=== PATIENT | male | born 1965 | race Caucasian/White ===

== ENCOUNTER → 2018-02-24 09:48 | Outpatient (CLI) | payer OTHER, SELFPAY ==
[2018-02-24 10:34] LABS: Add Manual Diff / Slide Review NO; Basophils Percent Auto 0.5 % (0-2); Eosinophils Percent Auto 4.6 % (2-4); Hematocrit 39.2 % (41-53); Hemoglobin 13.7 g/dL (13.5-17.5); Lymphocytes Percent Auto 13.9 % (25-40); Mean Corpuscular HGB Conc 35.1 % (30-36); Mean Corpuscular Volume 88.5 fL (80-100); Monocytes Percent Auto 8.4 % (3-14); Neutrophils Absolute Auto 2700 /uL (3000-5900); Neutrophils Percent Auto 72.6 % (50-75); Platelet Count 122 X10^3/uL (150-400); Red Blood Cell Count 4.42 X10^6/uL (4.5-5.9); Red Cell Distribution Width 14.2 % (11.6-14.8); White Blood Cell Count 3.7 X10^3/uL (4.5-11.0)
[2018-02-24 11:13] LABS: Alanine Aminotransferase 35 IU/L (21-72); Albumin 4.5 g/dL (3.5-5.0); Albumin Globulin Ratio 1.5 (1.0-2.8); Alkaline Phosphatase 72 U/L (38-126); Aspartate Aminotransferase 41 IU/L (17-59); Bilirubin Total 1.1 mg/dL (0.2-1.3); Calcium 9.2 mg/dL (8.4-10.2); Cholesterol 261 mg/dL (140-199); Estimated Glomerular Filt Rate > 60.0 mL/min (>60); Glucose 117 mg/dL (70-100); HDL Cholesterol 64 mg/dL (40-60); HEMOLYSIS < 15 (0-50); LDL Cholesterol Calculated 176 mg/dL (<100); Potassium 4.1 mmol/L (3.4-5.1); Sodium 137 mmol/L (137-145); Total Protein 7.5 g/dL (6.3-8.2); Triglycerides 107 mg/dL (35-150)
[2018-02-24 11:33] LABS: Thyroid Stimulating Hormone 1.14 uIU/mL (0.47-4.68)
[2018-02-24 11:37] LABS: Prostate Specific Antigen Scrn 0.429 ng/mL (0.1-4.0)
== END ==
PROVIDERS: PCP Family Medicine; Visit Provider Family Medicine
DX: I10 Essential (primary) hypertension (principal)
CPT/HCPCS: 36415; 80053; 80061; 84403; 84443; 85025; G0103

== ENCOUNTER → 2018-05-20 11:11 | Outpatient (CLI) | payer OTHER, MEDICARE, SELFPAY ==
--- NOTE | 2018-05-20 11:13 | DI.RAD.S_ITS ---
PROCEDURE: XR HAND LT MIN 3V INDICATIONS: hand injury TECHNIQUE: 3 views of the hand(s) acquired. COMPARISON: None. FINDINGS: Bones: Nondisplaced fracture head and neck of the second metacarpal. Carpal bones are normally aligned. No suspicious bony lesions. Soft tissues: No suspicious soft tissue calcifications. IMPRESSION: Fracture second metacarpal head and neck. Dictated by: Obi Griffith M.D. on 05/20/2018 at 12:46 Approved by: Obi Griffith M.D. on 05/20/2018 at 12:47
== END ==
PROVIDERS: PCP Family Medicine; Visit Provider Internal Medicine
DX: S62.361A Nondisplaced fracture of neck of second metacarpal bone, left hand, initial encounter for closed fracture (principal)
CPT/HCPCS: 73130

== ENCOUNTER → 2018-08-26 09:30 | Outpatient (CLI) | payer OTHER, SELFPAY | PROVIDERS: PCP Family Medicine; Visit Provider Family Medicine | DX: G54.2 Cervical root disorders, not elsewhere classified (principal) | CPT/HCPCS: 95886; 95911 ==

== ENCOUNTER → 2019-08-19 06:46 | Outpatient (CLI) | payer OTHER, SELFPAY ==
[2019-08-19 08:21] LABS: Add Manual Diff / Slide Review NO; Basophils Absolute Auto 0 /uL (0-100); Basophils Percent Auto 0.6 % (0-2); Eosinophils Absolute Auto 100 /uL (0-450); Eosinophils Percent Auto 1.6 % (2-4); Hemoglobin 17.5 g/dL (13.5-17.5); Lymphocytes Absolute Auto 1100 /uL (1100-4500); Lymphocytes Percent Auto 20.9 % (25-40); Mean Corpuscular HGB Conc 34.3 % (30-36); Mean Corpuscular Volume 90.4 fL (80-100); Monocytes Absolute Auto 400 /uL (0-900); Monocytes Percent Auto 8.2 % (3-14); Neutrophils Absolute Auto 3600 /uL (1500-7000); Neutrophils Percent Auto 68.7 % (50-75); Platelet Count 254 X10^3/uL (150-400); Red Blood Cell Count 5.64 X10^6/uL (4.5-5.9); Red Cell Distribution Width 12.6 % (11.6-14.8); White Blood Cell Count 5.3 X10^3/uL (4.5-11.0)
[2019-08-19 08:43] LABS: Alanine Aminotransferase 73 IU/L (21-72); Albumin Globulin Ratio 1.5 (1.0-2.8); Alkaline Phosphatase 77 U/L (38-126); Aspartate Aminotransferase 85 IU/L (17-59); BUN Creatinine Ratio 7.8 (6-22); Bilirubin Total 1.1 mg/dL (0.2-1.3); Blood Urea Nitrogen 7 mg/dL (9-20); Calcium 9.5 mg/dL (8.4-10.2); Carbon Dioxide 24 mmol/L (22-32); Chloride 102 mmol/L (98-107); Cholesterol 251 mg/dL (140-199); Estimated Glomerular Filt Rate > 60.0 mL/min (>60); Globulin 3.4 g/dL (1.7-4.1); Glucose 117 mg/dL (70-100); HDL Cholesterol 58 mg/dL (40-60); HEMOLYSIS < 15 (0-50); LDL Cholesterol Calculated 159 mg/dL (<100); Potassium 4.1 mmol/L (3.4-5.1); Sodium 140 mmol/L (137-145); Total Protein 8.4 g/dL (6.3-8.2); Triglycerides 170 mg/dL (35-150); Uric Acid 8.3 mg/dL (3.5-8.5)
[2019-08-19 09:04] LABS: Prostate Specific Antigen Scrn 0.794 ng/mL (0.1-4.0)
[2019-08-19 09:06] LABS: Thyroid Stimulating Hormone 1.03 uIU/mL (0.47-4.68)
== END ==
PROVIDERS: PCP Family Medicine; Visit Provider Family Medicine
DX: I10 Essential (primary) hypertension (principal)
CPT/HCPCS: 36415; 80053; 80061; 84403; 84443; 84550; 85025; G0103

== ENCOUNTER → 2019-10-14 11:45 | Outpatient (CLI) | payer OTHER, SELFPAY ==
--- NOTE | 2019-10-14 11:47 | DI.RAD.S_ITS ---
PROCEDURE: XR SHOULDER RT MIN 2V INDICATIONS: Pain TECHNIQUE: Pre-views of the shoulder were acquired. COMPARISON: None. FINDINGS: Bones: No fractures or dislocations. No suspicious bony lesions. Visualized ribs appear intact. Soft tissues: No suspicious soft tissue calcifications. IMPRESSION: Mild a.c. joint osteoarthritis. Dictated by: Jarett Kaur M.D. on 10/14/2019 at 12:13 Approved by: Jarett Kaur M.D. on 10/14/2019 at 12:14
== END ==
PROVIDERS: PCP Family Medicine; Visit Provider Family Medicine
DX: M25.511 Pain in right shoulder (principal); M19.011 Primary osteoarthritis, right shoulder
CPT/HCPCS: 73030

== ENCOUNTER → 2021-02-14 10:41 | Outpatient (CLI) | payer OTHER, MEDICARE, SELFPAY ==
[2021-02-14] MEDS: COVID-19 VACC #1, MRNA(MOD) 100 MCG/0.5 ML VIAL IM (10:48)
== END ==
PROVIDERS: PCP Family Medicine; Visit Provider Internal Medicine
DX: Z23 Encounter for immunization (principal)
CPT/HCPCS: 0011A; 91301

== ENCOUNTER → 2021-02-22 12:39 | Outpatient (CLI) | payer OTHER, MEDICARE, SELFPAY ==
--- NOTE | 2021-02-22 12:41 | DI.RAD.S_ITS ---
PROCEDURE: XR CERVICAL SPINE 2V OR 3V INDICATIONS: chronic neck pain TECHNIQUE: 4 view(s) of the cervical spine were acquired. COMPARISON: None. FINDINGS: Bones: No fractures or dislocations to the T1 level. The lateral masses of C1 appear intact on the odontoid view. No suspicious bony lesions. Anterior fusion plate stabilization from C5 through C7 is achieved by a fusion plate and bilateral anterior screws at each of the 3 levels, and there also is what appears to be intervertebral disc spacers at the 2 intervening levels. Finally, posterior fixation devices are seen extending from C3 through C7 at and to the right of midline. Soft tissues: No prevertebral soft tissue swelling. IMPRESSION: Anterior fusion plating and [id number] posterior fusion across the levels described above, establishing normal alignment without subluxation. Dictated by: Jarett Kaur M.D. on 02/22/2021 at 13:39 Approved by: Jarett Kaur M.D. on 02/22/2021 at 13:42
[2021-02-22 14:56] LABS: Alanine Aminotransferase 292 IU/L (<50); Albumin 4.5 g/dL (3.5-5.0); Albumin Globulin Ratio 1.4 (1.0-2.8); Alkaline Phosphatase 85 U/L (38-126); Aspartate Aminotransferase 214 IU/L (17-59); BUN Creatinine Ratio 8.1 (6-22); Bilirubin Total 0.8 mg/dL (0.2-1.3); Blood Urea Nitrogen 7 mg/dL (9-20); Calcium 9.5 mg/dL (8.4-10.2); Carbon Dioxide 27 mmol/L (22-32); Chloride 96 mmol/L (98-107); Estimated Glomerular Filt Rate > 60.0 mL/min (>60); Globulin 3.2 g/dL (1.7-4.1); Glucose 131 mg/dL (70-100); HEMOLYSIS < 15 (0-50); Potassium 3.9 mmol/L (3.4-5.1); Sodium 134 mmol/L (137-145); Total Protein 7.7 g/dL (6.3-8.2)
[2021-02-22 15:27] LABS: Prostate Specific Antigen Scrn 1.11 ng/mL (0.1-4.0)
[2021-02-22 15:29] LABS: TSH w/ Reflex to FT4 0.87 uIU/mL (0.47-4.68)
== END ==
PROVIDERS: PCP Internal Medicine; Referring Provider Internal Medicine; Visit Provider Internal Medicine
DX: M54.2 Cervicalgia (principal); Z12.5 Encounter for screening for malignant neoplasm of prostate; E29.1 Testicular hypofunction; I10 Essential (primary) hypertension; G89.29 Other chronic pain; Z98.1 Arthrodesis status
CPT/HCPCS: 36415; 72040; 80053; 84443; G0103

== ENCOUNTER → 2021-03-20 10:46 | Outpatient (CLI) | payer MEDICARE, SELFPAY ==
[2021-03-20] MEDS: COVID-19 VACC #2, MRNA(MOD) 100 MCG/0.5 ML VIAL IM (10:52)
== END ==
PROVIDERS: PCP Internal Medicine; Visit Provider Internal Medicine
DX: Z23 Encounter for immunization (principal)
CPT/HCPCS: 0012A; 91301

== ENCOUNTER → 2021-09-27 10:37 | Outpatient (CLI) | payer OTHER, MEDICARE, SELFPAY ==
[2021-09-27 12:22] LABS: INR 1.1 (0.9-1.3); Prothrombin Time 12.5 SECONDS (10.1-12.7)
[2021-09-27 12:28] LABS: HEMOLYSIS < 15 (0-50); Iron 241 ug/dL (49-181)
[2021-09-27 12:29] LABS: Alanine Aminotransferase 125 IU/L (<50); Albumin Globulin Ratio 1.4 (1.0-2.8); Alkaline Phosphatase 76 U/L (38-126); Aspartate Aminotransferase 161 IU/L (17-59); BUN Creatinine Ratio 14.1 (6-22); Bilirubin Total 1.4 mg/dL (0.2-1.3); Blood Urea Nitrogen 13 mg/dL (9-20); Calcium 10.5 mg/dL (8.4-10.2); Carbon Dioxide 31 mmol/L (22-32); Chloride 97 mmol/L (98-107); Cholesterol 281 mg/dL (140-199); Creatine Kinase 160 U/L (55-170); Estimated Glomerular Filt Rate > 60.0 mL/min (>60); Globulin 3.5 g/dL (1.7-4.1); Glucose 128 mg/dL (70-100); HDL Cholesterol 107 mg/dL (40-60); HEMOLYSIS 28 (0-50); LDL Cholesterol Calculated 155 mg/dL (<100); Potassium 4.9 mmol/L (3.4-5.1); Sodium 136 mmol/L (137-145); Total Protein 8.5 g/dL (6.3-8.2); Triglycerides 93 mg/dL (35-150)
[2021-09-27 12:39] LABS: Percent Iron Saturation 66 % (20-50); Total Iron Binding Capacity 364 ug/dL (261-462); Transferrin 295 mg/dL (206-381)
[2021-09-27 13:00] LABS: TSH w/ Reflex to FT4 2.16 uIU/mL (0.47-4.68)
[2021-09-27 13:01] LABS: Hepatitis B Surface Antigen NEGATIVE s/c (NEGATIVE)
[2021-09-27 13:18] LABS: Hep C Virus Ab w/Reflex Quant NEGATIVE s/c (NEGATIVE)
[2021-09-28 04:50] LABS: Ceruloplasmin 24.3 mg/dL (16.0-31.0)
[2021-09-29 18:31] LABS: Smooth Muscle Antibody 9 Units (0-19)
[2021-10-01 01:08] LABS: Hepatitis B Surf Ab Qualitativ Non Reactive (.)
[2021-10-01 02:36] LABS: Deamidated Gliadin IgA 7 units (0-19); Deamidated Gliadin IgG 2 units (0-19); IGA 207 mg/dL (90-386); t-Transglutaminase IgA <2 U/mL (0-3)
[2021-10-01 07:09] LABS: Percent Free Testosterone 2.56 % (1.50-4.20); Testosterone Total 273.5 ng/dL (264.0-916.0)
[2021-10-02 12:09] LABS: ANA Screen, IFA Negative (.)
== END ==
PROVIDERS: PCP Internal Medicine; Referring Provider Internal Medicine; Visit Provider Internal Medicine
DX: R79.89 Other specified abnormal findings of blood chemistry (principal); I10 Essential (primary) hypertension; E29.1 Testicular hypofunction
CPT/HCPCS: 36415; 80048; 80061; 80076; 82390; 82550; 82784; 83516; 83540; 83550; 84402; 84403; 84443; 85610; 86038; 86255; 86706; 86803; 87340

== ENCOUNTER → 2022-05-07 10:23 | Outpatient (CLI) | payer MEDICARE, SELFPAY ==
--- NOTE | 2022-05-07 10:25 | DI.MRI.S_ITS ---
PROCEDURE: MR SHOULDER LT WO CON INDICATIONS: chronic pain TECHNIQUE: Noncontrast oblique coronal T2 fast spin echo with fat saturation, oblique sagittal T1 spin echo and T2 fast spin echo with fat saturation, axial T1 spin echo and T2 fast spin echo with fat saturation through the shoulder. COMPARISON: [facility], CR, XR SHOULDER RT MIN 2V, 10/14/2019, 11:44. FINDINGS: Image quality: Excellent. Rotator cuff: There is full-thickness tearing of the supraspinatus tendon and the anterior portion of the infraspinatus tendon approximately 1 cm from the distal insertion with proximal tendon retraction measuring up to 3.9 cm. Tendinosis of the posterior infraspinatus tendon is seen. The teres minor tendon is intact. There is high-grade partial articular sided tearing of the subscapularis tendon at the superior insertion superimposed on chronic tendinosis. There is a mild atrophy and grade 2 fatty infiltration of the supraspinatus muscle. The infraspinatus and subscapularis tendons are intact. Mildly increased signal is seen in the teres minor muscle that may be related to mild early denervation changes. No mass is seen along the course of the axillary nerve. Bones and bursae: There is no acute trabecular bone injury. Severe degenerative changes are seen in the acromioclavicular joint with subchondral cystic changes and edema and marginal osteophyte formation. A small glenohumeral effusion communicates with the subacromial/subdeltoid bursa. Capsule and soft tissues: There is diffuse labral degeneration and nondisplaced degenerative tearing. The biceps long head tendon is not visualized, consistent with complete tearing and distal retraction. There is effacement of the fat in the rotator interval. The glenohumeral ligaments are grossly intact. IMPRESSION: 1. Full-thickness tearing of the supraspinatus tendon in the anterior portion of the infraspinatus tendon approximately 1 cm from their distal insertions with proximal tendon retraction measuring up to 3.9 cm. Moderate posterior infraspinatus tendinosis. Mild atrophy and grade 2 fatty infiltration of the supraspinatus muscle. 2. High-grade partial articular sided tearing of the subscapularis tendon at the superior insertion superimposed on moderate chronic tendinosis. 3. Complete tearing and distal retraction of the biceps long head tendon. 4. Diffuse labral degeneration and chronic degenerative tearing. 5. Severe acromioclavicular osteoarthrosis. 6. Small glenohumeral effusion communicates with the subacromial/subdeltoid bursa. 7. Mildly increased signal within the teres minor muscle may be related to mild or early denervation changes. No mass is seen along the course of the axillary nerve. Dictated by: Luis Villar M.D. on 05/07/2022 at 13:41 Approved by: Luis Villar M.D. on 05/07/2022 at 13:53
== END ==
PROVIDERS: PCP Family Medicine; Referring Provider Family Medicine; Visit Provider Family Medicine
DX: M25.512 Pain in left shoulder (principal); G89.29 Other chronic pain; M75.122 Complete rotator cuff tear or rupture of left shoulder, not specified as traumatic; S46.111A Strain of muscle, fascia and tendon of long head of biceps, right arm, initial encounter; M19.011 Primary osteoarthritis, right shoulder; M25.411 Effusion, right shoulder
CPT/HCPCS: 73221

== ENCOUNTER → 2022-05-14 17:05 | Outpatient (CLI) | payer MEDICARE, SELFPAY ==
--- NOTE | 2022-05-14 17:09 | DI.MRI.S_ITS ---
PROCEDURE: MR CERVICAL SPINE WO CON INDICATIONS: Neck pain TECHNIQUE: Noncontrast sagittal T1 spin echo and T2 fast spin echo, sagittal STIR, foraminal oblique sagittal T2 fast spin echo, and axial gradient echo or T2 fast spin echo through the cervical spine. COMPARISON: [facility], CR, XR CERVICAL SPINE 2V OR 3V, 02/22/2021, 12:41. [facility], CT, CT CERVICAL SPINE WITHOUT CONTRAST, 05/20/2018, 13:23. FINDINGS: Image quality: Excellent. Alignment and Curvature: Reversal of the normal cervical lordosis is seen, with the apex at the C3-C4 level. No focal AP alignment abnormality is seen. Bone Marrow: Marrow demonstrates normal overall signal. Spinal Cord: Visualized spinal cord has normal size and signal. No cerebellar tonsillar herniation. Paraspinous Soft Tissues: No paravertebral masses. Prevertebral soft tissues are normal in thickness. Extensive postoperative changes are seen, with anterior fixation hardware C5 through C7. There has been removal of portions of the posterior elements, with placement of metallic fixation devices posteriorly. C2-C3: The disc height is well-preserved. Loss of disc signal is seen at this level. Moderate generalized disc bulge is seen. Moderate facet joint hypertrophy is seen. There is moderate to severe left-sided and moderate right-sided neural foraminal narrowing. No central canal narrowing is seen. C3-C4: There is moderate to severe loss of disc height and disc signal can be seen. At least moderate disc bulge is seen. At least moderate facet hypertrophy is seen at this level. Moderate to severe bilateral neural foraminal narrowing is seen. The central canal is widely patent. C4-C5: The disc height is well-preserved. Loss of disc signal is seen at this level. Mild to moderate disc osteophyte complex is seen. There is moderate facet hypertrophy seen, right worse than left. There is moderate to severe right-sided and moderate left-sided neural foraminal narrowing. The central canal is widely patent. C5-C6: Moderate generalized disc osteophyte complex is seen. Moderate facet joint hypertrophy is seen. There is moderate to severe bilateral neural foraminal narrowing seen, with an associated a degree of compression seen upon the exiting nerve roots. No central canal narrowing is seen. C6-C7: A mild degree of generalized disc osteophyte complex is seen. Mild facet joint hypertrophy is seen. At least moderate bilateral neural foraminal narrowing can be seen. The central canal is widely patent. C7-T1: The disc height and disc signal are relatively well preserved. A mild degree of generalized disc osteophyte complex is seen. There is moderate to severe right-sided and moderate left-sided neural foraminal narrowing. No central canal narrowing is seen. IMPRESSION: Extensive postoperative hardware can be seen. Multiple levels of degenerative change can be seen, with multiple levels of significant neural foraminal narrowing. Dictated by: Samir Mckeon M.D. on 05/14/2022 at 16:59 Approved by: Samir Mckeon M.D. on 05/14/2022 at 17:04
== END ==
PROVIDERS: PCP Family Medicine; Referring Provider Family Medicine; Visit Provider Family Medicine
DX: M47.812 Spondylosis without myelopathy or radiculopathy, cervical region (principal); M48.02 Spinal stenosis, cervical region; M54.2 Cervicalgia; G89.29 Other chronic pain; Z98.1 Arthrodesis status
CPT/HCPCS: 72141

== ENCOUNTER → 2023-02-25 07:04 | Outpatient (CLI) | payer OTHER, MEDICARE, SELFPAY ==
--- NOTE | 2023-02-25 07:07 | DI.US.S_ITS ---
PROCEDURE: US SCROTUM INDICATIONS: RIGHT TESTICULAR PAIN TECHNIQUE: Real-time scanning was performed of the scrotum and testicles, with image documentation. Color and pulse Doppler interrogation was performed of both testicles. COMPARISON: None. FINDINGS: Right: Testicle is normal in size at 3.2 x 1.2 x 2.1 cm, and mildly heterogeneous in echotexture. No focal testicular lesions. Epididymis is normal in overall size and morphology. No hydrocele or varicoceles. Overlying scrotal skin is normal in thickness. Left: Testicle is normal in size at 2.9 x 1.3 x 2.0 cm, and mildly heterogeneous in echotexture. No focal testicular lesions. Epididymis is normal in overall size and morphology. No hydrocele or varicoceles. Overlying scrotal skin is normal in thickness. Doppler: Color and pulse Doppler demonstrate symmetric arterial flow in both testicles which is slightly diminished in amplitude. No inguinal hernias identified. IMPRESSION: 1. Testicles without focal intratesticular abnormalities. Symmetric but slightly diminished arterial flow within the bilateral testicles. Normal waveforms. No hyperemia. Overall, relatively symmetric appearance of the bilateral testicles. 2. No sonographic abnormalities identified in the right inguinal region. Dictated by: Parveen Polanco M.D. on 02/25/2023 at 8:17 Approved by: Parveen Polanco M.D. on 02/25/2023 at 8:24
== END ==
PROVIDERS: PCP Family Medicine; Referring Provider Family Medicine; Visit Provider Family Medicine
DX: N50.811 Right testicular pain (principal)
CPT/HCPCS: 76870

== ENCOUNTER → 2023-03-02 10:26 | Outpatient (CLI) | payer OTHER, SELFPAY ==
--- NOTE | 2023-03-02 | DI.MRI.S_ITS ---
PROCEDURE: MR SHOULDER LT W CON INDICATIONS: acute left shoulder pain TECHNIQUE: After the administration of 12 mL of dilute intra-articular Gadolinium contrast, oblique coronal T1 and T2 spin echo with fat saturation, oblique sagittal T1 spin echo with and without fat saturation, oblique sagittal T2 fast spin echo with fat saturation, axial T1 spin echo with fat saturation through the shoulder. COMPARISON: None. FINDINGS: Image quality: Excellent. Rotator cuff: There is prior rotator cuff tendon repair. Full-thickness rupture of distal supraspinatus and infraspinatus at their insertions on humeral head is seen with up to 4.7 cm medial retraction of torn tendon fibers to the level of acromioclavicular joint. Low-grade intrasubstance partial-thickness tear involving distal subscapularis is seen. Moderate supraspinatus and mild infraspinatus muscle atrophy is seen on sagittal images. Bones and bursae: Expected postsurgical widening of acromioclavicular joint is seen. Postsurgical changes are noted in anterior and lateral aspect of humeral head. No acute fracture or dislocation. Superior migration of humeral head in relation to glenoid is noted. Capsule and soft tissues: Signal abnormality and contrast extension in superior anterior labrum at 12 to 2 o'clock position is seen suggestive of superior anterior labral tear. Patient is status post tenodesis of proximal long head of biceps. The visualized portion of proximal biceps tendon is grossly intact. The rotator interval appears normal, without fibrosis. The coracohumeral ligament is of normal thickness. No intra-articular bodies. IMPRESSION: 1. Postsurgical changes from prior rotator cuff tendon repair. No acute fracture or dislocation. Expected postsurgical widening of acromioclavicular joint. No gross loose bodies. 2. Full-thickness rupture of distal supraspinatus and infraspinatus at their insertions on humeral head with up to 4.7 cm medial retraction of torn tendon fibers to the level of acromioclavicular joint. Low-grade intrasubstance partial-thickness tear involving distal subscapularis. Moderate supraspinatus muscle atrophy and mild infraspinatus muscle atrophy. 3. Suggestion of superior anterior labral tear at 12 to 2 o'clock position. 4. Proximal long head of biceps tenodesis with grossly intact biceps tendon. Dictated by: Artie Diggs M.D. on 03/02/2023 at 15:12 Approved by: Artie Diggs M.D. on 03/02/2023 at 15:16
--- NOTE | 2023-03-02 | DI.RAD.S_ITS ---
PROCEDURE: FL SHOULDER INJECTION MR/CT LT INDICATIONS: acute left shoulder pain COMPARISON: None. TECHNIQUE: The indications, alternatives, benefits, risks, and complications of the procedure were explained to the patient. Written informed consent was obtained and placed in the chart. The shoulder was examined fluoroscopically and a site for needle placement chosen for entry into the glenohumeral joint from an anterior approach. The skin was prepped and draped in a sterile fashion, and 1% lidocaine infiltrated from skin down to joint capsule. A spinal needle was inserted into the glenohumeral joint, and a small amount of saline was injected to confirm intra-articular placement of the needle tip. This was followed by approximately 12 mL dilute solution of a gadolinium containing MR contrast agent. The needle was removed and a dressing was applied. The patient was given postprocedural instructions and sent to the MR suite for MR imaging. FINDINGS: A single fluoroscopic spot image demonstrates the left glenohumeral joint, status post gadolinium injection. IMPRESSION: Successful fluoroscopically guided administration of dilute Gadolinium solution into the shoulder joint for MR arthrogram. Dictated by: Willam Rogers M.D. on 03/02/2023 at 13:34 Approved by: Willam Rogers M.D. on 03/02/2023 at 13:35
== END ==
PROVIDERS: PCP Family Medicine; Referring Provider Orthopaedic Surgery; Visit Provider Orthopaedic Surgery
DX: S46.012D Strain of muscle(s) and tendon(s) of the rotator cuff of left shoulder, subsequent encounter (principal); M25.512 Pain in left shoulder; G89.11 Acute pain due to trauma; Z98.890 Other specified postprocedural states
CPT/HCPCS: 23350; 73222

== ENCOUNTER → 2023-04-03 14:33 | Outpatient (CLI) | payer OTHER, SELFPAY | PROVIDERS: PCP Family Medicine; Visit Provider Nurse Practitioner Family | DX: N50.819 Testicular pain, unspecified (principal) | CPT/HCPCS: 87086 ==

== ENCOUNTER → 2023-04-16 10:32 | Outpatient (CLI) | payer OTHER, MEDICARE, SELFPAY ==
--- NOTE | 2023-04-16 10:34 | DI.US.S_ITS ---
PROCEDURE: US ABDOMEN COMPLETE INDICATIONS: ELEVATED LFTs, URINE BILIRUBIN TECHNIQUE: Real-time scanning was performed of the abdominal and retroperitoneal organs, with image documentation. COMPARISON: None. FINDINGS: Challenging exam secondary to patient body habitus and bowel gas. Liver: The liver parenchyma is heterogeneous, coarse, and echogenic. The liver size is at the upper limits of normal. The margin appears smooth. No visible mass. Gallbladder: The gallbladder is elongated and distended. There is sludge without stone present. The wall thickness is questionable, at one point measuring 4.6 mm. There is no pericholecystic fluid or sonographic Mas sign. Incidental note of mild gallbladder wall hyperemia. Biliary ducts: Intrahepatic bile ducts are non-dilated. Extrahepatic bile duct caliber measures 6.9 mm. Normal is 6-7 mm or less in diameter, or 10 mm or less post-cholecystectomy. Pancreas: Not seen. Spleen: Spleen is normal in size and homogeneous in echotexture. Kidneys: Kidneys are normal in size and echotexture. Right kidney measures 10.7 cm long; left kidney measures 10.3 cm long. No hydronephrosis or nephrolithiasis. No solid masses. Aorta: Not seen Iliacs: Not seen IVC: Intrahepatic inferior vena cava is patent. Miscellaneous: No free abdominal fluid. IMPRESSION: 1. Heterogeneous hepatic echotexture suggesting steatosis or intrinsic liver disease. 2. Sludge containing gallbladder with a possibly thickened and hyperemic wall. No obstructing stone. Consider nuclear medicine HIDA scan for confirmation of biliary dysfunction. 3. No biliary dilatation. Dictated by: Kendra Tatum M.D. on 04/16/2023 at 13:49 Approved by: Kendra Tatum M.D. on 04/16/2023 at 13:54
== END ==
PROVIDERS: PCP Family Medicine; Referring Provider Nurse Practitioner Family; Visit Provider Nurse Practitioner Family
DX: R79.89 Other specified abnormal findings of blood chemistry (principal); R82.2 Biliuria; K82.8 Other specified diseases of gallbladder
CPT/HCPCS: 76700

== ENCOUNTER 2023-04-20 15:20 | Emergency (ER) | payer OTHER, MEDICARE, SELFPAY ==
[2023-04-20 15:25] VITALS: BP 135/83; PULSE 117; RESP 20; TEMP 36.6; O2SAT 96
[2023-04-20 15:30] VITALS: BP 134/95; PULSE 117; O2SAT 96
[2023-04-20 15:42] LABS: Add Manual Diff / Slide Review NO; Basophils Absolute Auto 100 /uL (0-100); Basophils Percent Auto 2.6 % (0-2); Eosinophils Absolute Auto 100 /uL (0-450); Eosinophils Percent Auto 2.9 % (2-4); Hematocrit 37.8 % (41-53); Hemoglobin 12.9 g/dL (13.5-17.5); Lymphocytes Absolute Auto 1300 /uL (1100-4500); Lymphocytes Percent Auto 27.3 % (25-40); Mean Corpuscular HGB Conc 34.2 % (30-36); Mean Corpuscular Hemoglobin 33.8 PG (26-34); Mean Corpuscular Volume 98.7 fL (80-100); Monocytes Absolute Auto 400 /uL (0-900); Monocytes Percent Auto 7.7 % (3-14); Neutrophils Absolute Auto 2900 /uL (1500-7000); Neutrophils Percent Auto 59.5 % (50-75); Platelet Count 171 X10^3/uL (150-400); Red Blood Cell Count 3.83 X10^6/uL (4.5-5.9); Red Cell Distribution Width 14.1 % (11.6-14.8); White Blood Cell Count 4.9 X10^3/uL (4.5-11.0)
--- NOTE | 2023-04-20 15:51 | ED_ITS ---
HPI - Nausea/Vomiting/Diarrhea General Chief complaint: Nausea/Vomiting/Diarrhea Stated complaint: puking bile, coughing, galbladder T-30 Time Seen by Provider: 04/20/23 15:33 Source: patient and family Mode of arrival: Ambulatory History of Present Illness HPI Narrative: Patient is a 57-year-old male. Is an alcoholic. Is here for evaluation of approximately 30 days of vomiting, weight loss, scrotal discomfort and potential gallbladder dysfunction. He has been seen by his primary care doctor's office for all of the symptoms in the past. Has had a scrotal ultrasound which was unremarkable. Has a follow-up with Urology in 2 days from now. He is also had an abdominal ultrasound which showed potential gallbladder dysfunction. The ultrasound report recommended a HIDA scan however the patient has not had any further follow-up for this. Patient is also complaining of a lump in his neck. He states that he has difficulty swallowing. No problems breathing. He is still tolerating liquids he is still continuing to drink alcohol. He is also been vomiting. This seems to mostly occur at night in in the morning. Patient does not have any nausea medication. He is no specific abdominal tenderness. Related Data Previous Rx's Medication Instructions Recorded tretinoin 0.05 % topical cream 1 applic topical BEDTIME PRN Cysts 10/09/21 (Retin-A) #45 grams indomethacin 25 mg capsule 25 mg PO TID #90 caps 04/25/22 syringe with needle, safety 3 mL #100 ea 04/25/22 20 gauge x 1 1/2 (Monoject Safety Syringes) cyclobenzaprine 10 mg tablet 10 mg PO TID PRN muscle spasm #90 07/26/22 tabs lisinopril 20 mg tablet 20 mg PO DAILY #90 tabs 11/20/22 diazepam 10 mg tablet See Rx Instructions PO .COMPLEX 02/17/23 alcohol withdrawal #32 tabs hydrocodone 7.5 mg-acetaminophen See Rx Instructions .Route 04/01/23 325 mg tablet .COMPLEX #240 tabs atorvastatin 10 mg tablet 10 mg PO DAILY #90 tabs 04/03/23 testosterone cypionate 200 mg/mL See Rx Instructions .Route 04/03/23 intramuscular oil .COMPLEX #10 mL zolpidem 5 mg tablet See Rx Instructions .Route 04/03/23 .COMPLEX #30 tabs duloxetine 40 mg capsule,delayed See Rx Instructions .Route 04/17/23 release .COMPLEX #270 caps ondansetron 4 mg disintegrating 4 mg PO Q6H PRN nausea and 04/20/23 tablet vomiting #14 tabs sucralfate 100 mg/mL oral 10 ml PO QACHS #414 mL 04/20/23 suspension (Carafate) Allergies Allergy/AdvReac Type Severity Reaction Status Date / Time No Known Drug Allergies Allergy Verified 04/03/23 14:05 Review of Systems Review of Systems ROS Unobtainable: All systems reviewed & are unremarkable except as noted in HPI and below Constitutional Constitutional: Reports system reviewed and no additional complaints, except as documented Patient History Medical History Alcohol use disorder Alcohol withdrawal Anxiety and depression Chronic left shoulder pain Chronic neck pain Elevated liver function tests Hyperglycemia Hypogonadism in male Low back pain Mixed hyperlipidemia Postoperative pain, acute, shoulder Right testicular pain Surgical History (Updated 02/14/21 @ 15:25 by Ken Arroyo MD) Hx of cervical spine surgery S/P carpal tunnel release S/P lumbar laminectomy S/P shoulder surgery Social History Smoking Status: Current some day smoker Smoking Status: Current some day smoker tobacco type: smokeless tobacco Alcohol type: beer Substance Use Type: marijuana Exam Initial Vital Signs Initial Vital Signs: Vital Signs Temperature 97.9 F 04/20/23 15:25 Pulse Rate 117 H 04/20/23 15:25 Respiratory Rate 20 04/20/23 15:25 Blood Pressure 135/83 04/20/23 15:25 Pulse Oximetry 96 04/20/23 15:25 Oxygen Delivery Method Room Air 04/20/23 15:25 Const General: cooperative, comfortable and No ill appearing [facility] Head: normal to inspection and normocephalic Neck Other: Several sub cm submandibular lymph nodes Resp Effort & Inspection: normal respiratory effort Auscultation: clear to auscultation bilaterally Cardio Rate: tachycardic Rhythm: regular rhythm GI Inspection: normal to inspection and non-distended Palpation: soft, No firm and No tender Skin Rashes: no rashes Neuro General: patient alert, patient awake and moves all extremities Extrem General: normal to inspection and capillary refill normal Psych Appearance: grossly normal Course Orders Ordered: ED Orders 04/20/23 15:35 Comprehensive Metabolic Panel Stat 04/20/23 15:36 Complete Blood Count AUTO DIFF Stat Lipase Stat 04/20/23 15:39 EKG-12 Lead Stat Discontinued Medications Sodium Chloride (Normal Saline 0.9%) 1,000 mls @ 1,000 mls/hr IV BOLUS ONE Stop: 04/20/23 16:34 Last Infusion: 04/20/23 17:50 Dose: 0 mls/hr Documented By: Admin: 04/20/23 16:46 Dose: 1,000 mls/hr Documented By: BEBETO Vital Signs Vital signs: Vital Signs - 8 hr 04/20/23 15:25 04/20/23 15:30 04/20/23 15:30 Temperature 97.9 F Pulse Rate 117 H 117 H Respiratory Rate 20 Blood Pressure 135/83 134/95 H Pulse Oximetry 96 96 Oxygen Delivery Method Room Air 04/20/23 16:00 04/20/23 16:00 04/20/23 16:30 Temperature Pulse Rate 96 H Respiratory Rate 19 Blood Pressure 133/75 125/68 Pulse Oximetry 94 Oxygen Delivery Method 04/20/23 16:30 04/20/23 17:00 04/20/23 17:00 Temperature Pulse Rate 95 H 83 Respiratory Rate 15 14 Blood Pressure 150/88 H Pulse Oximetry 95 97 Oxygen Delivery Method 04/20/23 17:30 04/20/23 17:30 Temperature Pulse Rate 98 H Respiratory Rate 14 Blood Pressure 175/111 H Pulse Oximetry 97 Oxygen Delivery Method Room Air MDM - Nausea/Vomiting/Diarrhea Medical Records Attestation: I reviewed the patient's medical records. Lab Data 04/20/23 15:36 04/20/23 15:35 Labs: Lab Results 04/20/23 04/20/23 04/20/23 Range/Units 15:35 15:36 15:36 WBC 4.9 (4.5-11.0) X10^3/uL RBC 3.83 L (4.5-5.9) X10^6/uL Hgb 12.9 L (13.5-17.5) g/dL Hct 37.8 L (41-53) % MCV 98.7 (80-100) fL MCH 33.8 (26-34) PG MCHC 34.2 (30-36) % RDW 14.1 (11.6-14.8) % Plt Count 171 (150-400) X10^3/uL Neut % (Auto) 59.5 (50-75) % Lymph % (Auto) 27.3 (25-40) % [place] % (Auto) 7.7 (3-14) % Eos % (Auto) 2.9 (2-4) % Baso % (Auto) 2.6 H (0-2) % Neut # (Auto) 2900 (0363-4114) /uL Lymph # (Auto) 1300 (9569-9493) /uL [place] # (Auto) 400 (0-900) /uL Eos # (Auto) 100 (0-450) /uL Baso # (Auto) 100 (0-100) /uL Sodium 135 L (137-145) mmol/L Potassium 4.6 (3.4-5.1) mmol/L Chloride 96 L (98-107) mmol/L Carbon Dioxide 23 (22-32) mmol/L BUN 10 (9-20) mg/dL Creatinine 0.88 (0.66-1.25) mg/dL Estimated GFR > 60 (>60) mL/min BUN/Creatinine Ratio 11.4 (6-22) Glucose 124 H (70-100) mg/dL Calcium 9.2 (8.4-10.2) mg/dL Total Bilirubin 1.8 H (0.2-1.3) mg/dL AST 226 H (17-59) IU/L ALT 82 H (<50) IU/L Alkaline Phosphatase 137 H (38-126) U/L Total Protein 8.5 H (6.3-8.2) g/dL Albumin 4.8 (3.5-5.0) g/dL Globulin 3.7 (1.7-4.1) g/dL Albumin/Globulin Ratio 1.3 (1.0-2.8) Lipase 393 H (23-300) U/L ECG Data Attestation: I personally reviewed and interpreted this ECG as follows: Interpretation: Sinus rhythm Ventricular rate 96 Normal axis Normal QRS Normal QTC No ST T wave changes MDM Narrative Medical decision making narrative: Patient is having scrotal discomfort but he is had a workup of this and has a follow-up with Urology in 2 days from now. No further workup required here in the ER and he was instructed to continue to keep his appointment. He is also having vomiting. He has had an abdominal ultrasound which showed potential gallbladder pathology. He does have an elevation in his LFTs today but he also has had this in the past and he does have a significant alcohol history. He is no right upper quadrant pain. Negative Mas's sign. He is not febrile. I do suspect that he needs further evaluation to include a HIDA scan however this does not need to happen out of the emergency department. I do not feel that we need to repeat a right upper quadrant ultrasound. After further discussion with the patient with his out of the room he states that he does have a si gnificant alcohol history. He states he has withdrawn from alcohol in the past. When he wakes up in the morning he was shaking. He drinks alcohol soon as he wakes up in the morning. He states that when he vomits it is in the morning and then he feels better for the rest of the day. I feel that the vomiting is most likely related to his alcohol withdrawal. He does not have any nausea medicati on at home so he is given a prescription for this. He states he is having problems swallowing but he is certainly tolerating oral intake. We did discuss that maybe he needs to keep to soft foods for now. He will probably need an upper endoscopy but this can be ordered by his primary doctor. I will send him home with a prescription for Carafate as he probably has a degree of gastritis along with this. He mentioned multiple times that he is ?going to rehab? although he does not have any specific plans to do this. Will discharge patient home with follow-up with primary provider. Discharge Plan Departure Patient Disposition: Home Clinical Impression: Vomiting Instructions: DI for Vomiting -- Adult Activity Restrictions/Additional Instructions: I do recommend that you continue to take all of your medications as directed. Keep your scheduled appointment with the urologist in 2 days from now. I also recommend that you talk with your primary doctor about ordering a HIDA scan also recommend that you continue to cut back on the amount of alcohol that you were drinking. Return to the emergency department for new or worsening symptoms. Prescriptions: New ondansetron 4 mg tablet,disintegrating 4 mg PO Q6H PRN (Reason: nausea and vomiting) Qty: 14 0RF sucralfate [Carafate] 100 mg/mL suspension 10 ml PO QACHS Qty: 414 2RF No Action tretinoin [Retin-A] 0.05 % cream 1 applic TOP BEDTIME PRN (Reason: Cysts) Qty: 45 1RF cyclobenzaprine 10 mg tablet 10 mg PO TID PRN (Reason: muscle spasm) Qty: 90 3RF lisinopril 20 mg tablet 20 mg PO DAILY Qty: 90 3RF hydrocodone-acetaminophen 7.5-325 mg tablet See Rx Instructions .ROUTE .COMPLEX Qty: 240 0RF Rx Instructions: Take 1-2 tablets by mouth every 6 hours as needed for pain; authorizing early refill due/to surgery complications atorvastatin 10 mg tablet 10 mg PO DAILY Qty: 90 3RF zolpidem 5 mg tablet See Rx Instructions .ROUTE .COMPLEX Qty: 30 5RF Rx Instructions: Take 1 tab by mouth at bedtime as needed for sleep testosterone cypionate 200 mg/mL oil See Rx Instructions .ROUTE .COMPLEX Qty: 10 5RF Rx Instructions: Inject 100 mg or 0.5 mL intramuscularly every 2 weeks duloxetine 40 mg capsule,delayed release(DR/EC) See Rx Instructions .ROUTE .COMPLEX Qty: 270 0RF Rx Instructions: 2 tabs in am and 1 tab in pm diazepam 10 mg tablet See Rx Instructions PO .COMPLEX Qty: 32 0RF Rx Instructions: orally; Patient will follow instructions for alcohol withdrawal with 20mg q6h on day one and then decrease by 25% each day until done. indomethacin 25 mg capsule 25 mg PO TID Qty: 90 3RF Rx Instructions: 1-2 tabs three times daily for gout (DME) Monoject Safety Syringes 3 mL 20 gauge x 1 1/2 syringe See Dose Instructions .ROUTE .MEDSUPPLY Qty: 100 11RF Dose Instruction: As directed Rx Instructions: Use to draw up and inject tesosterone every two weeks Referrals: Yordy Fernando DO [Primary Care Provider] - Stand Alone Forms: Patient Portal/API
[2023-04-20 15:56] LABS: Lipase 393 U/L (23-300)
[2023-04-20 15:57] LABS: Alanine Aminotransferase 82 IU/L (<50); Albumin 4.8 g/dL (3.5-5.0); Albumin Globulin Ratio 1.3 (1.0-2.8); Alkaline Phosphatase 137 U/L (38-126); Aspartate Aminotransferase 226 IU/L (17-59); BUN Creatinine Ratio 11.4 (6-22); Bilirubin Total 1.8 mg/dL (0.2-1.3); Blood Urea Nitrogen 10 mg/dL (9-20); Calcium 9.2 mg/dL (8.4-10.2); Carbon Dioxide 23 mmol/L (22-32); Chloride 96 mmol/L (98-107); Estimated Glomerular Filt Rate > 60 mL/min (>60); Globulin 3.7 g/dL (1.7-4.1); Glucose 124 mg/dL (70-100); HEMOLYSIS < 15 (0-50); Potassium 4.6 mmol/L (3.4-5.1); Sodium 135 mmol/L (137-145); Total Protein 8.5 g/dL (6.3-8.2)
[2023-04-20 16:00] VITALS: BP 133/75; PULSE 96; RESP 19; O2SAT 94
[2023-04-20 16:30] VITALS: BP 125/68; PULSE 95; RESP 15; O2SAT 95
[2023-04-20] MEDS: SODIUM CHLORIDE 0.9% 1,000 ML 1000 ML IV (16:46)
[2023-04-20 17:00] VITALS: BP 150/88; PULSE 83; RESP 14; O2SAT 97
[2023-04-20 17:30] VITALS: BP 175/111; PULSE 98; RESP 14; O2SAT 97
== END 2023-04-20 17:59 | disposition home or self-care (01) ==
PROVIDERS: Emergency Provider Emergency Medicine; PCP Family Medicine
DX: R11.2 Nausea with vomiting, unspecified (principal); Z79.899 Other long term (current) drug therapy
CPT/HCPCS: 36415; 80053; 83690; 85025; 93005; 93010; 96360; 99284

== ENCOUNTER → 2023-04-22 15:53 | Outpatient (CLI) | payer OTHER, SELFPAY | PROVIDERS: PCP Family Medicine; Visit Provider Specialist | DX: N40.1 Benign prostatic hyperplasia with lower urinary tract symptoms (principal); N13.8 Other obstructive and reflux uropathy; N50.811 Right testicular pain; N50.812 Left testicular pain; N50.0 Atrophy of testis | CPT/HCPCS: 51798; 81002; 87086; 99215 ==

== ENCOUNTER → 2023-04-24 10:11 | Outpatient (CLI) | payer OTHER, SELFPAY ==
[2023-04-24 11:51] LABS: Prostate Specific Antigen 0.573 ng/mL (0.10-4.00)
[2023-04-24 12:45] LABS: Urine N gonorrhoeae NOT DETECTED
[2023-04-24 12:56] LABS: Urine Chlamydia NOT DETECTED
[2023-04-29 08:36] LABS: Testosterone % Fr + Wkly bound 9.5 % (9.0-46.0)
== END ==
PROVIDERS: Nurse Practitioner Family; PCP Family Medicine; Referring Provider Specialist; Visit Provider Specialist
DX: E29.1 Testicular hypofunction (principal); N50.0 Atrophy of testis; N13.8 Other obstructive and reflux uropathy; N40.1 Benign prostatic hyperplasia with lower urinary tract symptoms; N50.819 Testicular pain, unspecified
CPT/HCPCS: 36415; 84153; 84403; 87491; 87591

== ENCOUNTER 2023-05-05 16:59 | Emergency (ER) | payer OTHER, SELFPAY ==
[2023-05-05 17:00] VITALS: BP 122/61; PULSE 97; RESP 19; TEMP 36.7; O2SAT 99; BMI 27.9
[2023-05-05 17:08] VITALS: PULSE 96; RESP 22; O2SAT 99
--- NOTE | 2023-05-05 17:17 | DI.RAD.S_ITS ---
PROCEDURE: XR CHEST 1V INDICATIONS: chest pain TECHNIQUE: One view of the chest was acquired. COMPARISON: None. FINDINGS: Surgical changes and devices: None. Lungs and pleura: Lungs are clear. No pleural effusions or pneumothorax. Mediastinum: Mediastinal contours appear normal. Heart size is normal. Bones and chest wall: No suspicious bony lesions. Overlying soft tissues appear unremarkable. IMPRESSION: No acute cardiopulmonary abnormality. Dictated by: Armando Pérez M.D. on 05/05/2023 at 18:21 Approved by: Armando Pérez M.D. on 05/05/2023 at 18:21
[2023-05-05 17:25] LABS: INR 1.2 (0.9-1.3); Prothrombin Time 13.4 SECONDS (10.1-12.7)
[2023-05-05 17:27] LABS: PTT Partial Thromboplastin Tim 33 SECONDS (26-36)
[2023-05-05 17:30] VITALS: BP 102/57; PULSE 83; RESP 20; O2SAT 98
[2023-05-05 17:30] LABS: Add Manual Diff / Slide Review NO; Basophils Absolute Auto 0 /uL (0-100); Basophils Percent Auto 0.9 % (0-2); Eosinophils Absolute Auto 0 /uL (0-450); Eosinophils Percent Auto 1.3 % (2-4); Hematocrit 34.7 % (41-53); Hemoglobin 11.7 g/dL (13.5-17.5); Lymphocytes Absolute Auto 300 /uL (1100-4500); Lymphocytes Percent Auto 12.5 % (25-40); Mean Corpuscular HGB Conc 33.8 % (30-36); Mean Corpuscular Hemoglobin 33.6 PG (26-34); Mean Corpuscular Volume 99.6 fL (80-100); Monocytes Absolute Auto 200 /uL (0-900); Monocytes Percent Auto 7.8 % (3-14); Neutrophils Absolute Auto 2100 /uL (1500-7000); Neutrophils Percent Auto 77.5 % (50-75); Platelet Count 130 X10^3/uL (150-400); Red Blood Cell Count 3.48 X10^6/uL (4.5-5.9); Red Cell Distribution Width 14.3 % (11.6-14.8); White Blood Cell Count 2.7 X10^3/uL (4.5-11.0)
[2023-05-05 17:33] LABS: Alanine Aminotransferase 58 IU/L (<50); Albumin 4.4 g/dL (3.5-5.0); Albumin Globulin Ratio 1.4 (1.0-2.8); Alkaline Phosphatase 146 U/L (38-126); Aspartate Aminotransferase 208 IU/L (17-59); Bilirubin Total 0.8 mg/dL (0.2-1.3); Blood Urea Nitrogen 15 mg/dL (9-20); Calcium 8.6 mg/dL (8.4-10.2); Carbon Dioxide 25 mmol/L (22-32); Chloride 97 mmol/L (98-107); Creatine Kinase 102 U/L (55-170); Estimated Glomerular Filt Rate > 60 mL/min (>60); Globulin 3.2 g/dL (1.7-4.1); Glucose 187 mg/dL (70-100); HEMOLYSIS < 15 (0-50); Lipase 349 U/L (23-300); Magnesium 1.6 mg/dL (1.6-2.3); Potassium 4.2 mmol/L (3.4-5.1); Sodium 136 mmol/L (137-145); Total Protein 7.6 g/dL (6.3-8.2)
[2023-05-05 17:45] LABS: Troponin I < 0.012 ng/mL (0.01-0.034)
[2023-05-05 18:00] VITALS: PULSE 107; RESP 22; O2SAT 97
--- NOTE | 2023-05-05 18:31 | ED_ITS ---
HPI - General Adult General Chief complaint: Syncope Stated complaint: passed out 4 times, hit the floor multiple times Time Seen by Provider: 05/05/23 17:19 Source: patient Mode of arrival: Wheelchair History of Present Illness HPI narrative: Patient is a 57-year-old female. Here for evaluation of multiple syncopal episodes today. Over the past several days/weeks he has had increasing the amount of times that he is fallen. He states he is not sustained any injuries in the fall. His is at bedside. She states that the episodes happen when he is sitting and also when he is standing. He also states he feels like there is a lump in his throat. He is also been losing weight. Potentially has issues with his gallbladder in his scheduled to see a specialist for this in the upcoming weeks. Patient does have a significant alcohol history. Drinks on a daily basis. Reported to me that he did not drink today however reported to nursing staff that his last drink was at 0200 hours this afternoon. When the event happened today patient states that he did not have any prodromal symptoms. No chest pain. No shortness of breath. He stated that when he would wake up from the events he did notice the and remember everyone standing around him. No history of seizures. Related Data Previous Rx's Medication Instructions Recorded tretinoin 0.05 % topical cream 1 applic topical BEDTIME PRN Cysts 10/09/21 (Retin-A) #45 grams indomethacin 25 mg capsule 25 mg PO TID #90 caps 04/25/22 syringe with needle, safety 3 mL #100 ea 04/25/22 20 gauge x 1 1/2 (Monoject Safety Syringes) lisinopril 20 mg tablet 20 mg PO DAILY #90 tabs 11/20/22 diazepam 10 mg tablet See Rx Instructions PO .COMPLEX 02/17/23 alcohol withdrawal #32 tabs atorvastatin 10 mg tablet 10 mg PO DAILY #90 tabs 04/03/23 testosterone cypionate 200 mg/mL See Rx Instructions .Route 04/03/23 intramuscular oil .COMPLEX #10 mL zolpidem 5 mg tablet See Rx Instructions .Route 04/03/23 .COMPLEX #30 tabs ondansetron 4 mg disintegrating 4 mg PO Q6H PRN nausea and 04/20/23 tablet vomiting #14 tabs sucralfate 100 mg/mL oral 10 ml PO QACHS #414 mL 04/20/23 suspension (Carafate) tamsulosin 0.4 mg capsule 0.4 mg PO BEDTIME #90 caps 04/22/23 cyclobenzaprine 10 mg tablet 10 mg PO TID PRN muscle spasm #90 04/24/23 tabs duloxetine 40 mg capsule,delayed See Rx Instructions .Route 04/24/23 release .COMPLEX #270 caps hydrocodone 7.5 mg-acetaminophen See Rx Instructions .Route 04/24/23 325 mg tablet .COMPLEX #240 tabs Allergies Allergy/AdvReac Type Severity Reaction Status Date / Time No Known Drug Allergies Allergy Verified 05/05/23 17:14 Review of Systems Review of Systems ROS Unobtainable: All systems reviewed & are unremarkable except as noted in HPI and below Patient History Medical History Abnormal urinalysis Alcohol use disorder Alcohol withdrawal Anxiety and depression 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 Chronic left shoulder pain Chronic neck pain Dysphagia Elevated liver function tests Hyperglycemia Hypogonadism in male Low back pain Mixed hyperlipidemia Pain in both testicles Postoperative pain, acute, shoulder Right testicular pain Testicular pain Surgical History Hx of cervical spine surgery S/P carpal tunnel release S/P lumbar laminectomy S/P shoulder surgery Social History Smoking Status: Current some day smoker Smoking Status: Current some day smoker tobacco type: smokeless tobacco alcohol intake frequency: 3 or more drinks per day Alcohol type: beer Substance Use Type: marijuana Exam Initial Vital Signs Initial Vital Signs: Vital Signs Temperature 98.0 F 05/05/23 17:00 Pulse Rate 97 H 05/05/23 17:00 Respiratory Rate 19 05/05/23 17:00 Blood Pressure 122/61 05/05/23 17:00 Pulse Oximetry 99 05/05/23 17:00 Oxygen Delivery Method Room Air 05/05/23 17:00 HENMT Head: normal to inspection and atraumatic Neck Other: The ?lump? in his right side of the neck his his thyroid. Resp Effort & Inspection: normal respiratory effort Auscultation: clear to auscultation bilaterally Cardio Rate: regular rate Rhythm: regular rhythm GI Inspection: normal to inspection and non-distended Skin Other: Abrasions on his forehead and on the right side of his jaw. Neuro General: patient alert, patient awake and moves all extremities Extrem General: normal to inspection Course Orders Ordered: ED Orders 05/05/23 17:09 Complete Blood Count AUTO DIFF Stat Comprehensive Metabolic Panel Stat Lipase Stat Magnesium Stat PTT Partial Thromboplastin [place] Stat Prothrombin Time INR Stat Troponin & CK Cardiac Panel Stat 05/05/23 17:17 XR chest 1V Stat EKG-12 Lead Stat Vital Signs Vital signs: Vital Signs - 8 hr 05/05/23 17:00 05/05/23 17:08 05/05/23 17:30 Temperature 98.0 F Pulse Rate 97 H 96 H Respiratory Rate 19 22 Blood Pressure 122/61 102/57 L Pulse Oximetry 99 99 Oxygen Delivery Method Room Air 05/05/23 17:30 05/05/23 18:00 Temperature Pulse Rate 83 107 H Respiratory Rate 20 22 Blood Pressure Pulse Oximetry 98 97 Oxygen Delivery Method Medical Decision Making Lab Data Lab results reviewed: Yes I reviewed the patient's lab results. 05/05/23 17:09 05/05/23 17:09 Labs: Lab Results 05/05/23 05/05/23 05/05/23 Range/Units 17:09 17:09 17:09 WBC 2.7 L (4.5-11.0) X10^3/uL RBC 3.48 L (4.5-5.9) X10^6/uL Hgb 11.7 L (13.5-17.5) g/dL Hct 34.7 L (41-53) % MCV 99.6 (80-100) fL MCH 33.6 (26-34) PG MCHC 33.8 (30-36) % RDW 14.3 (11.6-14.8) % Plt Count 130 L (150-400) X10^3/uL Neut % (Auto) 77.5 H (50-75) % Lymph % (Auto) 12.5 L (25-40) % [place] % (Auto) 7.8 (3-14) % Eos % (Auto) 1.3 L (2-4) % Baso % (Auto) 0.9 (0-2) % Neut # (Auto) 2100 (6679-2410) /uL Lymph # (Auto) 300 L (6214-6152) /uL [place] # (Auto) 200 (0-900) /uL Eos # (Auto) 0 (0-450) /uL Baso # (Auto) 0 (0-100) /uL PT 13.4 H (10.1-12.7) SECONDS INR 1.2 (0.9-1.3) APTT 33 (26-36) SECONDS Sodium 136 L (137-145) mmol/L Potassium 4.2 (3.4-5.1) mmol/L Chloride 97 L (98-107) mmol/L Carbon Dioxide 25 (22-32) mmol/L BUN 15 (9-20) mg/dL Creatinine 1.15 (0.66-1.25) mg/dL Estimated GFR > 60 (>60) mL/min BUN/Creatinine Ratio 13.0 (6-22) Glucose 187 H (70-100) mg/dL Calcium 8.6 (8.4-10.2) mg/dL Magnesium 1.6 (1.6-2.3) mg/dL Total Bilirubin 0.8 (0.2-1.3) mg/dL AST 208 H (17-59) IU/L ALT 58 H (<50) IU/L Alkaline Phosphatase 146 H (38-126) U/L Total Creatine Kinase 102 (55-170) U/L Troponin I < 0.012 (0.01-0.034) ng/mL Total Protein 7.6 (6.3-8.2) g/dL Albumin 4.4 (3.5-5.0) g/dL Globulin 3.2 (1.7-4.1) g/dL Albumin/Globulin Ratio 1.4 (1.0-2.8) Lipase 349 H (23-300) U/L Imaging Data Chest x-ray: Radiologist's Impression: PROCEDURE:? XR CHEST 1V ? INDICATIONS:? chest pain ? TECHNIQUE:? One view of the chest was acquired.? ? COMPARISON:? None. ? FINDINGS:? ? Surgical changes and devices:? None.? ? Lungs and pleura:? Lungs are clear.? No pleural effusions or pneumothorax.? ? Mediastinum:? Mediastinal contours appear normal.? Heart size is normal.? ? Bones and chest wall:? No suspicious bony lesions.? Overlying soft tissues appear unremarkable.? ? IMPRESSION:? No acute cardiopulmonary abnormality. ECG Data Attestation: I personally reviewed and interpreted this ECG as follows: Interpretation: Sinus rhythm Ventricular rate 87 Normal axis Normal QRS Normal QTC No ST T wave changes MDM Narrative Medical decision making narrative: This history and physical has not consistent with seizures. Not consistent with stroke. We did discuss the possibility of a transient arrhythmia although he does not have any changes to his rate and rhythm on the EKG or on the monitor. His vital signs are unremarkable. His labs are unremarkable. Chest x-ray is unremarkable. Unsure the exact etiology of the patient's symptoms but I do have a high suspicion that it is related to his alcohol use. He also has several medications on his medicine list to include Ambien, Vicodin, diazepam, cyclobenzaprine that mixed with alcohol could be causing his symptoms as well. I advised that he talked with his primary doctor about the indications for a Holter monitor. Patient is safe for discharge home. He was given return precautions. Discharge Plan Departure Patient Disposition: Home Clinical Impression: Syncope Instructions: DI for Syncope in Adults (Fainting) Activity Restrictions/Additional Instructions: I recommend that you continue to take all of your medications as directed. I also recommend that you talk with your primary doctor about a referral to see Gastroenterology and also the indications for a Holter monitor. Return to the emergency department for new symptoms. Prescriptions: No Action tretinoin [Retin-A] 0.05 % cream 1 applic TOP BEDTIME PRN (Reason: Cysts) Qty: 45 1RF lisinopril 20 mg tablet 20 mg PO DAILY Qty: 90 3RF atorvastatin 10 mg tablet 10 mg PO DAILY Qty: 90 3RF zolpidem 5 mg tablet See Rx Instructions .ROUTE .COMPLEX Qty: 30 5RF Rx Instructions: Take 1 tab by mouth at bedtime as needed for sleep testosterone cypionate 200 mg/mL oil See Rx Instructions .ROUTE .COMPLEX Qty: 10 5RF Rx Instructions: Inject 100 mg or 0.5 mL intramuscularly every 2 weeks diazepam 10 mg tablet See Rx Instructions PO .COMPLEX Qty: 32 0RF Rx Instructions: orally; Patient will follow instructions for alcohol withdrawal with 20mg q6h on day one and then decrease by 25% each day until done. indomethacin 25 mg capsule 25 mg PO TID Qty: 90 3RF Rx Instructions: 1-2 tabs three times daily for gout (DME) Monoject Safety Syringes 3 mL 20 gauge x 1 1/2 syringe See Dose Instructions .ROUTE .MEDSUPPLY Qty: 100 11RF Dose Instruction: As directed Rx Instructions: Use to draw up and inject tesosterone every two weeks duloxetine 40 mg capsule,delayed release(DR/EC) See Rx Instructions .ROUTE .COMPLEX Qty: 270 3RF Rx Instructions: 2 tabs in am and 1 tab in pm cyclobenzaprine 10 mg tablet 10 mg PO TID PRN (Reason: muscle spasm) Qty: 90 3RF hydrocodone-acetaminophen 7.5-325 mg tablet See Rx Instructions .ROUTE .COMPLEX Qty: 240 0RF Rx Instructions: Take 1-2 tablets by mouth every 6 hours as needed for pain EXEMPT ondansetron 4 mg tablet,disintegrating 4 mg PO Q6H PRN (Reason: nausea and vomiting) Qty: 14 0RF sucralfate [Carafate] 100 mg/mL suspension 10 ml PO QACHS Qty: 414 2RF tamsulosin 0.4 mg capsule 0.4 mg PO BEDTIME Qty: 90 3RF Referrals: Yordy Fernando DO [Primary Care Provider] - Stand Alone Forms: Patient Portal/API
== END 2023-05-05 18:37 | disposition home or self-care (01) ==
PROVIDERS: Emergency Medicine; Emergency Provider Emergency Medicine; PCP Family Medicine
DX: R55 Syncope and collapse (principal); R07.9 Chest pain, unspecified
CPT/HCPCS: 36415; 71045; 80053; 82550; 83690; 83735; 84484; 85025; 85610; 85730; 93005; 99283; 99284

== ENCOUNTER → 2023-05-13 07:58 | Outpatient (CLI) | payer MEDICARE, SELFPAY ==
--- NOTE | 2023-05-13 08:11 | DI.CT.S_ITS ---
PROCEDURE: CT SOFT TISSUE NECK W CON INDICATIONS: Per Dr. Dukes, ENT for throat tightness TECHNIQUE: After the administration of intravenous contrast, 3.0 mm axial sections acquired from the sella to the aortic arch. Additional oblique axial 3.0 mm sections acquired through the pharynx. 3 mm thick coronal and sagittal reformats were generated. For radiation dose reduction, the following was used: automated exposure control. COMPARISON: None. FINDINGS: Image quality: Excellent. Lymph nodes: No enlarged lymph nodes seen throughout the neck. Vessels: Visualized vasculature appears patent. Neck spaces: The oropharynx, nasopharynx, and pharynx demonstrate no mucosal lesions. The vocal cords, false vocal cords, pyriform sinuses, epiglottis, vallecula, and tongue base all appear normal. Extramucosal spaces appear unremarkable. Glands: The parotid and submandibular glands appear normal. Thyroid gland is unremarkable. Miscellaneous: Visualized brain and orbits appear normal. Lung apices appear clear. Superficial soft tissues appear normal. Bones: No suspicious bony lesions. Visualized sinuses demonstrate prominent right maxillary sinus mucosal thickening. IMPRESSION: No visualized cause of throat tightness. Dictated by: Taina Uriarte M.D. on 05/13/2023 at 8:30 Approved by: Taina Uriarte M.D. on 05/13/2023 at 8:36
== END ==
PROVIDERS: PCP Family Medicine; Referring Provider Family Medicine; Visit Provider Family Medicine
DX: R13.10 Dysphagia, unspecified (principal); R09.89 Other specified symptoms and signs involving the circulatory and respiratory systems
CPT/HCPCS: 70491

== ENCOUNTER → 2023-05-20 08:31 | Outpatient (CLI) | payer OTHER, SELFPAY ==
--- NOTE | 2023-05-20 | DI.RAD.S_ITS ---
PROCEDURE: FL BARIUM SWALLOW W SPEECH INDICATIONS: Dysphagia, unspecified COMPARISON: None. TECHNIQUE: Examination was conducted in conjunction with speech pathology per standard protocol. In the lateral projection, filming was performed of the patient swallowing. AP projection filming may also be performed with patient swallowing. COMPARISON: FINDINGS: Function: The oral preparatory phase appears normal, with proper containment. The subsequent oral propulsive phase, pharyngeal phase phase of swallowing also appear normal with all proffered substances. Delayed transit within the upper esophagus, just superior to the cervical spine hardware. No laryngotracheal penetration or aspiration. Mild vallecular pooling. Lower esophageal spasms with tertiary contractions and pooling of contrast. Barium tablet demonstrate delayed transit with sticking at the GE junction requiring multiple swallows. Morphology: No cricopharyngeal bar is identified. No cervical esophageal webs. No Zenker's diverticulum. No strictures. C5 through C7 ACDF. Prominent anterior osteophytes at C3-C4 and C4-C5 indenting the esophagus. IMPRESSION: Delayed transit within the upper esophagus. Mild pooling within the vallecula. Lower esophageal spasm with pooling of contrast. Delayed passage of barium tablet through the GE junction. Please refer to the dedicated speech therapy swallowing evaluation report which will be independently generated. Dictated by: Carlitos Darnell M.D. on 05/20/2023 at 10:22 Approved by: Carlitos Darnell M.D. on 05/20/2023 at 10:25
--- NOTE | 2023-05-20 13:33 | ST.SWALLOW ---
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 Dukes, ENT Setting Setting Outpatient Care Patient Information Identification Type Name,Date of Patient History Pt was seen for a Modified Barium Swallow Study at the referral of Dr. Dukes. The pt has a medical history of multiple cervical surgeries including three ACDF with anterior hardware seen at C4- C5, C5-C6. Pt also reported cervical surgery with a posterior approach for cervical and thoracic vertebrae. Pt reports significant difficulty and pain with swallowing solids, but not liquids or pills. He described a significant weight loss and a sense of fullness after a few bites of food. Pt also reported being seen for gall bladder assessment. He denies regurgitation of undigested foods after eating. Finally, pt noted a change in his voice (e.g., softer) over the past year. Subjective Observations Pt presented as anxious. He stated he hadn't eaten and was shaky. He was notably shaking during the assessment. Pt was seated in the fluoroscopy chair and provided with description of the procedure and instructions. Pt indicated he understood and agreed to proceed. Patient Positioning Position View Lat-A/P Imaging Lateral View Textures Administered Trials Presented Thin Liquid via Spoon (IDDSI 0 ),Thin Liquid via Cup (IDDSI 0 ),Extremely Thick Liquid via Spoon (IDDSI 4),Regular (IDDSI 7) Barium Tablet Yes The IDDSI Framework Protocol: IDDSI.1 Oral Impairment Source: The Modified Barium Swallow Impairment Profile (MBSImP??) Lip Closure No labial escape Tongue Control During Bolus Hold Posterior escape of less than half of bolus Bolus Preparation/Mastication Timely & efficient chewing & mashing Bolus Transport/Lingual Motion Delayed initiation of tongue motion Oral Residue Complete oral clearance Initiation of Pharyngeal Swallow Bolus head at pyriforms Additional Oral Impairment Observations OME and DKS were informally assessed and were WFL. Pt's dentition was natural in good hygiene. ORAL PHASE: Bolus hold, AP transition and mastication were observed to be WNL. Good rotary chew pattern with no oral residue noted after all trials. Pharyngeal Impairment Source: The Modified Barium Swallow Impairment Profile (MBSImP??) Soft Palate Elevation No bolus between soft palate & pharyngeal wall Laryngeal Elevation Part.sup.move.thyroid cart/ part.approx.arytenoids to epiglot.petiole Anterior Hyoid Excursion Partial anterior movement Epiglottic Movement Partial inversion Laryngeal Vestibular Closure Complete; no air/contrast in laryngeal vestibule Pharyngeal Stripping Wave Present - diminished Pharyngoesophageal Segment Opening Minimal distension/minimal duration; marked obstruction of flow Tongue Base Retraction Trace column of contrast/air between tongue base & post. pharyngeal wall Pharyngeal Residue Collection of residue within/ on pharyngeal structures Location Diffuse (>3 areas) Additional Pharyngeal Impairment Tongue base weakness Observations negatively impacted hyolaryngeal elevation and movement. The hyoid bone had minimal forward movement which affected the epiglottic inversion. The epiglottis was noted to move to a horizontal position at maximum. This resulted in significant pooling of the chandu-solid and the solid texture trials. Additionally, pooling at the PES was observed following each attempt to swallow. The extension and duration of the PES opening appeared to be constricted. This was complicated by the location of the upper edge of the cervical hardware at the level of the PES. Each swallow ( liquids and solids) required multiple swallow attempts to clear the boluses. The pt remarked that he difficulty of swallowing the solid and semi- solid trials. A/P View Textures Administered Trials Presented Thin Liquid via Spoon (IDDSI 0 ) The IDDSI Framework Protocol: IDDSI.1 A/P View Observations Pharyngeal Contraction Complete Esophageal Clearance Upright Position Esophageal retention Additional A-P Observations Esophageal retention of barium contrast presented in lateral position was observed. Tertiarty contractions with retro flow of contents below the PES were observed. The barium tablet was observed to have a delayed transit and sticking at the GE junction requiring multiple swallows in order to clear into the stomach. Clinical Impressions Dysphagia Type Pharyngeal,Esophageal Findings The pt presented with moderate to severe pharyngoesophageal dysphagia with partially inverted epiglottis resulting in pooed residue. Additionally the PES was limited in opening extension and duration resulting the need for several swallows per bolus ( liquids and solids). Esophageal retention was observed with tertiary contractions and constriction at the GE junction, restricting timely flow to the stomach. swallow therapy is recommended for base of tongue exercises wit the goal to increase hyolaryngeal elevation and thereby improve epiglottic inversion. Additionally GI referral is recommended to further assess the PES function. Rehabilitation Potential Good Patient Appropriate for Therapy Yes Recommendations Diet Liquids Order Thin (IDDSI 0) Diet Order Soft & Bite-sized (IDDSI 6) Medication Recommendation As Tolerated Aspiration Precautions Recommended Precautions Alternate Liquids/Solids, Frequent Rest Periods,Small Bites/Sips Treatment Plan Therapy Recommendations Outpatient Speech Therapy Recommended Referrals GI Consult,ENT Consult Additional Recommended Referrals Stoboscopic evaluation of the vocal folds is recommended with Dr. Broussard Therapy Strategy Recommendations Small Bites and Sips,Alternate Liquids/Solids Short Term Goals Pt requested teletherpy for ST secondary to difficulty with transportation [place] in [facility]. [facility] ( Ariane Rizvi MA, CCC-REVENUE SETTLEMENTS ADMINISTRATOR) provides swallow therapy via telehealth. Phone: .
== END ==
PROVIDERS: PCP Family Medicine; Referring Provider Family Medicine; Visit Provider Family Medicine
DX: R13.10 Dysphagia, unspecified (principal)
CPT/HCPCS: 74230; 92611

== ENCOUNTER → 2023-05-28 13:40 | Outpatient (CLI) | payer MEDICARE, SELFPAY | PROVIDERS: PCP Family Medicine; Referring Provider Family Medicine; Visit Provider Family Medicine | DX: R55 Syncope and collapse (principal) | CPT/HCPCS: 93242 ==

== ENCOUNTER → 2023-06-15 07:44 | Outpatient (CLI) | payer MEDICARE, SELFPAY ==
--- NOTE | 2023-06-15 | DI.NM.S_ITS ---
PROCEDURE: NM HIDA WITH CCK PHARMACEUTICAL: 5.5 mCi Tc-99m mebrofenin IV; 1.9 mcg CCK IV. INDICATIONS: GALLBLADDER SLUDGE TECHNIQUE: Following intravenous administration of Tc-99m mebrofenin, sequential anterior abdominal images were obtained. To evaluate the contractile response of the gallbladder in response to Cholecystokinin (CCK), sincalide (0.02 ?g/kg) was administered by slow intravenous infusion approximately 60 minutes after the administration of the radiopharmaceutical. Sequential imaging was continued for 30 minutes after the start of CCK infusion. Gallbladder ejection fraction was calculated. COMPARISON: [facility], , US ABDOMEN COMPLETE, 04/16/2023, 10:56. FINDINGS: Biliary scan: There is normal tracer uptake and excretion by the liver. There is normal visualization of the intrahepatic ducts, common bile duct, and gallbladder. There is normal tracer transit into the duodenum. CCK stimulation: There is non painful contractile response of the gallbladder to CCK infusion. The calculated gallbladder ejection fraction is 78% ; normal values are above 35%. It has been shown that any patient abdominal pain after CCK administration is related to the rate of CCK injection, rather than to any underlying gallbladder disease (Clinical Nuclear Medicine 2012; 37: 63-70. Journal of Nuclear Medicine 2014; 55: 1-9). IMPRESSION: Normal exam. Dictated by: Taina Uriarte M.D. on 06/15/2023 at 16:09 Approved by: Taina Uriarte M.D. on 06/15/2023 at 16:10
== END ==
PROVIDERS: PCP Family Medicine; Referring Provider Family Medicine; Visit Provider Nurse Practitioner Family
DX: K82.8 Other specified diseases of gallbladder (principal); R79.89 Other specified abnormal findings of blood chemistry
CPT/HCPCS: 78227; A9537; J2805

== ENCOUNTER → 2023-06-16 14:47 | Outpatient (CLI) | payer MEDICARE, SELFPAY | PROVIDERS: PCP Family Medicine; Visit Provider Specialist | DX: N40.1 Benign prostatic hyperplasia with lower urinary tract symptoms (principal); N13.8 Other obstructive and reflux uropathy; N50.811 Right testicular pain; R82.90 Unspecified abnormal findings in urine | CPT/HCPCS: 51798; 81002; 87086; 99215 ==

== ENCOUNTER → 2023-08-07 13:26 | Outpatient (CLI) | payer MEDICARE, SELFPAY ==
--- NOTE | 2023-08-07 | DI.RAD.S_ITS ---
PROCEDURE: XR LUMBAR SPINE 2-3V INDICATIONS: A TECHNIQUE: 3 views of the lumbar spine were acquired. COMPARISON: None. FINDINGS: Bones: 5 cpe-zmy-gsinlae vertebrae are present. Multilevel disc space narrowing and endplate osteophyte formation, as well as facet hypertrophy. There is normal bony alignment. No vertebral body compression fractures. No suspicious bony lesions. Soft tissues: Overlying bowel gas pattern is normal. No suspicious soft tissue calcifications. IMPRESSION: Multilevel degenerative disc and facet disease. No acute fracture. No osseous lesion. If symptoms and/or clinical suspicion for pathology persist, further assessment with repeat, or advanced imaging (e.g., CT, MRI, or bone scan) may be helpful for further assessment. Dictated by: Carmelina Magaña M.D. on 08/07/2023 at 16:01 Approved by: Carmelina Magaña M.D. on 08/07/2023 at 16:01
== END ==
PROVIDERS: PCP Family Medicine; Referring Provider Registered Nurse Diabetes Educator; Visit Provider Registered Nurse Diabetes Educator
DX: R20.2 Paresthesia of skin (principal); M51.16 Intervertebral disc disorders with radiculopathy, lumbar region; M47.816 Spondylosis without myelopathy or radiculopathy, lumbar region
CPT/HCPCS: 72100

== ENCOUNTER → 2023-08-12 19:16 | Outpatient (CLI) | payer MEDICARE, SELFPAY ==
--- NOTE | 2023-08-12 19:22 | DI.MRI.S_ITS ---
PROCEDURE: MR CERVICAL SPINE WO CON INDICATIONS: neck pain pressing onto throat/possible loose hardware TECHNIQUE: Noncontrast sagittal T1 spin echo and T2 fast spin echo, sagittal STIR, foraminal oblique sagittal T2 fast spin echo, and axial gradient echo or T2 fast spin echo through the cervical spine. COMPARISON: [facility], MR, MR CERVICAL SPINE WO CON, 05/14/2022, 17:17. [facility], CT, CT SOFT TISSUE NECK W CON, 05/13/2023, 8:11. FINDINGS: Image quality: Excellent. Alignment and Curvature: Remote ACDF at C5 through C7 with anterior plate and screw fixation and interbody spacer material. Additionally, there is remote multilevel right hemilaminectomy and plate and screw fixation from C3 through C7. Trace anterolisthesis of C2 on C3. Bone Marrow: Unremarkable Spinal Cord: Visualized spinal cord has normal size and signal. No cerebellar tonsillar herniation. Paraspinous Soft Tissues: No paravertebral masses. Prevertebral soft tissues are normal in thickness. C2-C3: Prominent bilateral facet hypertrophy. No central canal stenosis. Moderate to severe right foraminal narrowing and severe left foraminal narrowing. There is left foraminal C3 nerve root impingement. C3-C4: Posterior osteophyte, as before. Facet hypertrophy bilaterally. Bilateral uncovertebral joint hypertrophy. No canal stenosis. Progressive severe bilateral foraminal narrowing with bilateral foraminal C4 nerve root impingement. C4-C5: No central canal stenosis. Marked right facet hypertrophy. Left facet hypertrophy. No canal stenosis. Moderate to severe right foraminal narrowing and moderate left foraminal narrowing. There is a degree of right foraminal C5 nerve root impingement. C5-C6: Fused. Facet hypertrophy. Uncovertebral joint hypertrophy. No canal stenosis. Moderate to severe bilateral foraminal narrowing with a degree of bilateral foraminal C6 nerve root impingement. C6-C7: Fused. No canal stenosis. Bilateral uncovertebral joint hypertrophy and facet hypertrophy. At least moderate bilateral foraminal narrowing. C7-T1: No canal stenosis. Moderate to severe right foraminal narrowing and moderate left foraminal narrowing. IMPRESSION: 1. Extensive postsurgical change as described above. 2. No central canal stenosis. 3. Significant multilevel foraminal narrowing as described above. Dictated by: Angel Chandler M.D. on 08/13/2023 at 14:12 Approved by: Angel Chandler M.D. on 08/13/2023 at 14:20
--- NOTE | 2023-08-12 19:22 | DI.MRI.S_ITS ---
PROCEDURE: MR LUMBAR SPINE WO CON INDICATIONS: low back pain TECHNIQUE: Noncontrast sagittal T1 spin echo and T2 fast echo, sagittal STIR, and T2 fast spin echo through the lumbar spine. In cases with scoliosis, additional coronal T2 fast spin echo may be performed. COMPARISON: [facility], CR, XR LUMBAR SPINE 2-3V, 08/07/2023, 15:03. FINDINGS: Image quality: Excellent. Alignment and Curvature: Trace retrolisthesis of L4 on L5 and of L5 on S1. Bone Marrow: Marrow is of normal overall signal. No acute vertebral body compression fractures. Spinal Cord: Conus medullaris terminates at the L1-L2 level. Visualized cord demonstrates normal signal and size. Paraspinous Soft Tissues: No paravertebral masses. T12-L1: Mild disc bulge. No canal stenosis or foraminal stenosis. L1-L2: Minimal disc bulge. Mild facet hypertrophy. No canal stenosis or foraminal stenosis. L2-L3: Moderate chronic disc height loss. Posterior disc plus osteophyte. Epidural lipomatosis, facet hypertrophy. The combination of these elements results in moderate canal stenosis. Mild bilateral foraminal stenosis. L3-L4: Severe chronic disc height loss. Posterior disc post osteophyte. Facet hypertrophy. Epidural lipomatosis. The combination of these elements results in at least moderate canal stenosis. Cdhn-cw-eieelmel bilateral foraminal narrowing. L4-L5: Moderately severe chronic disc height loss. Posterior disc post osteophyte. Facet hypertrophy. At least moderate canal stenosis. Moderate bilateral foraminal narrowing with flattening deformity on the exiting bilateral L4 nerve roots. L5-S1: Disc bulge. Facet hypertrophy. No significant canal stenosis. Gupv-df-afsssmxw right foraminal narrowing. Mild left foraminal narrowing. IMPRESSION: 1. Multilevel degenerative disc space loss and facet arthropathy. 2. Epidural lipomatosis contributes to canal stenosis. 3. Canal stenosis is at least moderate at L3-L4 and L4-L5. 4. Multilevel foraminal narrowing as described above. Findings include moderate bilateral foraminal narrowing at L4-L5. Dictated by: Angel Chandler M.D. on 08/13/2023 at 8:41 Approved by: Angel Chandler M.D. on 08/13/2023 at 8:47
== END ==
PROVIDERS: PCP Family Medicine; Referring Provider Registered Nurse Diabetes Educator; Visit Provider Registered Nurse Diabetes Educator
DX: M54.2 Cervicalgia (principal); R20.0 Anesthesia of skin; G89.29 Other chronic pain; R20.2 Paresthesia of skin; M54.17 Radiculopathy, lumbosacral region; M47.816 Spondylosis without myelopathy or radiculopathy, lumbar region; E88.2 Lipomatosis, not elsewhere classified; M48.061 Spinal stenosis, lumbar region without neurogenic claudication; M48.02 Spinal stenosis, cervical region; Z98.1 Arthrodesis status
CPT/HCPCS: 72141; 72148

== ENCOUNTER → 2023-10-29 13:09 | Outpatient (CLI) | payer OTHER, SELFPAY ==
--- NOTE | 2023-10-29 13:11 | DI.CT.S_ITS ---
PROCEDURE: CT CERVICAL SPINE WO CON INDICATIONS: cervical region TECHNIQUE: Noncontrast 3 mm thick sections acquired from the skull base to the T4 level. Sagittal and coronal reformats were then constructed. For radiation dose reduction, the following was used: automated exposure control, adjustment of mA and/or kV according to patient size. COMPARISON: [facility], CT, CT CERVICAL SPINE WITHOUT CONTRAST, 05/20/2018, 13:23. [facility], MR, MR CERVICAL SPINE WO CON, 08/12/2023, 19:26. FINDINGS: Image quality: This examination is limited by involuntary motion artifact. There is artifact associated with the metallic hardware. Artifact from the metallic hardware is reduced by metal reconstruction algorithm. Bones: No fractures or dislocations. Visualized superior ribs are intact. Extensive postoperative hardware can be seen. There is an anterior fixation plate from C5 through C7. The screws appear well placed. The fusion plate is well seated. Disc spacers are seen at C5-C6 and C6-C7. Along the posterior right aspects of the C5 through C7 levels, there has been removal of portions of the posterior elements, with placement of plate and screw fixation. No findings of hardware failure or hardware loosening are seen. Reversal of the normal cervical lordosis is seen, with the apex at the C3-C4 level. No focal AP alignment abnormality is seen. Focal degenerative change is seen involving the C1-C2 interface anteriorly. There is moderate to severe disc space narrowing seen at the C3-C4 level. Endplate irregularity and sclerosis can be seen. Mild to moderate disc space narrowing can be seen at C4-C5. Bridging endplate osteophytes are seen at C4-C5. At the C6-C7 level, there is moderate disc osteophyte complex seen, including a central/right disc osteophyte protrusion, which is similar to 2018, with mild central canal narrowing. Moderate disc space narrowing can be seen at C7-T1, with associated endplate irregularity and sclerosis. Soft tissues: Prevertebral soft tissues are normal in thickness. No paravertebral hematomas. No apical pneumothoraces. Atherosclerotic calcification is noted. IMPRESSION: Extensive postoperative hardware, without complication seen. Multiple levels of underlying cervical spine degenerative change can be seen. Dictated by: Samir Mckeon M.D. on 10/29/2023 at 15:53 Approved by: Samir Mckeon M.D. on 10/29/2023 at 16:01
== END ==
PROVIDERS: PCP Family Medicine; Referring Provider Neurological Surgery; Visit Provider Neurological Surgery
DX: M48.02 Spinal stenosis, cervical region (principal); Z98.1 Arthrodesis status; M47.812 Spondylosis without myelopathy or radiculopathy, cervical region
CPT/HCPCS: 72125; 87205

== ENCOUNTER → 2023-11-10 15:49 | Outpatient (CLI) | payer OTHER, SELFPAY | PROVIDERS: PCP Family Medicine; Referring Provider Family Medicine; Visit Provider Family Medicine | DX: Z13.9 Encounter for screening, unspecified (principal) | CPT/HCPCS: 87070; 87205 ==

== ENCOUNTER → 2023-12-01 13:58 | Outpatient (CLI) | payer MEDICARE, SELFPAY ==
--- NOTE | 2023-12-01 13:59 | DI.MRI.S_ITS ---
PROCEDURE: MR LUMBAR SPINE WO CON INDICATIONS: POST SURGERY LUMBAR PAIN TECHNIQUE: Noncontrast sagittal T1 spin echo and T2 fast echo, sagittal STIR, and T2 fast spin echo through the lumbar spine. In cases with scoliosis, additional coronal T2 fast spin echo may be performed. COMPARISON: [facility], CR, XR LUMBAR SPINE 2-3V, 08/07/2023, 15:03. [facility], MR, MR LUMBAR SPINE WO CON, 08/12/2023, 19:42. FINDINGS: Image quality: Excellent. Alignment and Curvature: 5 lumbar type vertebral bodies are present by plain film. There is loss of normal lumbar lordosis. 3 mm of retrolisthesis of L2 on L3, L3 on L4, L4 on L5, and L5 on S1. Bone Marrow: Marrow is of normal overall signal. Laminectomy at L2-L3 and L3-L4 has been performed, new since the prior examination. No acute vertebral body compression fractures. Mild reactive signal throughout the endplates of the lumbar and lower thoracic spine, most prominently at L2-L3, L3-L4, and L4-L5. Spinal Cord: Conus medullaris terminates at the upper L2 level. Visualized cord demonstrates normal signal and size. Paraspinous Soft Tissues: No paravertebral masses. Moderate ill-defined STIR signal elevation within the posterior paraspinous soft tissues at L2-L3 and L3-L4. T12-L1: Mild disc height loss. Moderate disc desiccation. Mild diffuse disc bulge. Mild facet and ligamentum flavum hypertrophy. Mild epidural lipomatosis. Mild canal stenosis. Mild bilateral foraminal stenosis. No significant change. L1-L2: Mild disc desiccation and diffuse disc bulge. Mild facet and ligamentum flavum hypertrophy. Mild epidural lipomatosis. Mild canal stenosis. Mild bilateral foraminal stenosis. L2-L3: Severe disc height loss and desiccation. Mild diffuse disc bulge/osteophyte. Mild facet and ligamentum flavum hypertrophy. Postsurgical T2 signal elevation within the posterior epidural soft tissues. There is persistent severe canal stenosis. No change in moderate bilateral foraminal stenosis. L3-L4: Severe disc height loss and desiccation. Mild diffuse disc bulge. Mild bilateral facet hypertrophy. Postsurgical T2 signal elevation within the posterior epidural space. There is persistent severe canal stenosis. No change in moderate bilateral foraminal stenosis. L4-L5: Severe disc height loss and desiccation. Mild diffuse disc bulge. Mild bilateral facet and ligamentum flavum hypertrophy. No significant change in moderate canal stenosis and moderate bilateral foraminal stenosis. L5-S1: Moderate disc height loss and desiccation. Mild diffuse disc bulge. Moderate bilateral facet hypertrophy. Mild canal stenosis. Moderate subarticular foraminal stenosis bilaterally. IMPRESSION: 1. Postsurgical sequelae. 2. Multilevel degenerative disc and facet disease, as well as ligamentum flavum hypertrophy and epidural lipomatosis. 3. Multilevel canal stenoses, worst at L2-L3 and L3-L4 where there are severe canal stenoses. 4. Moderate multilevel foraminal stenosis as above. Dictated by: Carmelina Magaña M.D. on 12/01/2023 at 14:53 Approved by: Carmelina Magaña M.D. on 12/01/2023 at 14:58
== END ==
PROVIDERS: PCP Family Medicine; Referring Provider Neurological Surgery; Visit Provider Neurological Surgery
DX: M47.26 Other spondylosis with radiculopathy, lumbar region (principal); M47.27 Other spondylosis with radiculopathy, lumbosacral region; M51.16 Intervertebral disc disorders with radiculopathy, lumbar region; M51.17 Intervertebral disc disorders with radiculopathy, lumbosacral region; M48.061 Spinal stenosis, lumbar region without neurogenic claudication; M48.07 Spinal stenosis, lumbosacral region
CPT/HCPCS: 72148

== ENCOUNTER → 2023-12-02 11:37 | Outpatient (CLI) | payer MEDICARE, SELFPAY ==
[2023-12-02 12:13] LABS: Add Manual Diff / Slide Review NO; Basophils Absolute Auto 100 /uL (0-100); Eosinophils Absolute Auto 100 /uL (0-450); Eosinophils Percent Auto 2.5 % (2-4); Hematocrit 33.2 % (41-53); Hemoglobin 11.3 g/dL (13.5-17.5); Lymphocytes Absolute Auto 1100 /uL (1100-4500); Lymphocytes Percent Auto 22.5 % (25-40); Mean Corpuscular HGB Conc 33.9 % (30-36); Mean Corpuscular Hemoglobin 32.7 PG (26-34); Mean Corpuscular Volume 96.3 fL (80-100); Monocytes Absolute Auto 500 /uL (0-900); Monocytes Percent Auto 11.2 % (3-14); Neutrophils Absolute Auto 3000 /uL (1500-7000); Neutrophils Percent Auto 62.8 % (50-75); Platelet Count 175 X10^3/uL (150-400); Red Blood Cell Count 3.45 X10^6/uL (4.5-5.9); Red Cell Distribution Width 14.4 % (11.6-14.8); White Blood Cell Count 4.9 X10^3/uL (4.5-11.0)
[2023-12-02 12:37] LABS: Alanine Aminotransferase 68 IU/L (<50); Albumin 4.1 g/dL (3.5-5.0); Albumin Globulin Ratio 1.3 (1.0-2.8); Alkaline Phosphatase 110 U/L (38-126); Aspartate Aminotransferase 158 IU/L (17-59); BUN Creatinine Ratio 13.4 (6-22); Bilirubin Total 1.1 mg/dL (0.2-1.3); Blood Urea Nitrogen 15 mg/dL (9-20); Calcium 9.1 mg/dL (8.4-10.2); Carbon Dioxide 32 mmol/L (22-32); Chloride 92 mmol/L (98-107); Cholesterol 184 mg/dL (140-199); Estimated Glomerular Filt Rate > 60 mL/min (>60); Globulin 3.2 g/dL (1.7-4.1); Glucose 78 mg/dL (70-100); HDL Cholesterol 60 mg/dL (40-60); HEMOLYSIS < 15 (0-50); LDL Cholesterol Calculated 93 mg/dL (<100); Potassium 5.2 mmol/L (3.4-5.1); Sodium 130 mmol/L (137-145); Total Protein 7.3 g/dL (6.3-8.2); Triglycerides 156 mg/dL (35-150)
--- NOTE | 2023-12-02 13:00 | DI.US.S_ITS ---
PROCEDURE: US SCROTUM INDICATIONS: pain especially to right testicle TECHNIQUE: Real-time scanning was performed of the scrotum and testicles, with image documentation. Color and pulse Doppler interrogation was performed of both testicles. COMPARISON: [facility], , US SCROTUM, 02/25/2023, 7:33. FINDINGS: Right: Testicle is small in size at 1.4 x 1.6 x 1.3 cm, and homogenous in echotexture. Epididymis is normal in overall size and morphology. No hydrocele or varicoceles. Overlying scrotal skin is normal in thickness. Left: Testicle is small in size at 2.7 x 2.0 x 1.3 cm, and homogeneous in echotexture. Epididymis is normal in overall size and morphology. No hydrocele or varicoceles. Overlying scrotal skin is normal in thickness. Doppler: Color and pulse Doppler demonstrate normal and symmetric arterial flow in both testicles. IMPRESSION: 1 .Both testicles are abnormally small in size, right smaller than left. 2. No testicular mass, testicular torsion, orchitis, or epididymitis. Dictated by: Angel Chandler M.D. on 12/02/2023 at 18:23 Approved by: Angel Chandler M.D. on 12/02/2023 at 18:25
[2023-12-02 13:02] LABS: TSH w/ Reflex to FT4 2.37 uIU/mL (0.47-4.68)
[2023-12-02 13:21] LABS: Vitamin B12 704 pg/mL (239-931)
--- NOTE | 2023-12-02 13:30 | DI.US.S_ITS ---
PROCEDURE: US SOFT TISSUE HEAD AND NECK INDICATIONS: pain and swlling b/l cervical area TECHNIQUE: Real-time scanning was performed of the neck region of interest, with image documentation. COMPARISON: None. FINDINGS: Sonographic images of the right neck demonstrate no abnormal mass, focal fluid collection or architectural distortion. IMPRESSION: Unremarkable exam. Dictated by: Taina Uriarte M.D. on 12/02/2023 at 16:06 Approved by: Taina Uriarte M.D. on 12/02/2023 at 16:08
== END ==
PROVIDERS: Physician Assistant; PCP Family Medicine; Referring Provider Physician Assistant; Visit Provider Physician Assistant
DX: N50.819 Testicular pain, unspecified (principal); N50.9 Disorder of male genital organs, unspecified; R59.1 Generalized enlarged lymph nodes; R79.89 Other specified abnormal findings of blood chemistry; I10 Essential (primary) hypertension; E78.2 Mixed hyperlipidemia; R73.9 Hyperglycemia, unspecified; F10.90 Alcohol use, unspecified, uncomplicated; R53.83 Other fatigue
CPT/HCPCS: 76536; 76870; 80053; 80061; 82607; 83036; 84443; 85025; 93975

== ENCOUNTER → 2023-12-09 11:07 | Outpatient (CLI) | payer MEDICARE, SELFPAY ==
[2023-12-09 11:25] LABS: Add Manual Diff / Slide Review NO; Basophils Absolute Auto 0 /uL (0-100); Basophils Percent Auto 0.1 % (0-2); Eosinophils Absolute Auto 0 /uL (0-450); Eosinophils Percent Auto 0.3 % (2-4); Hematocrit 32.6 % (41-53); Hemoglobin 11.2 g/dL (13.5-17.5); Lymphocytes Absolute Auto 500 /uL (1100-4500); Lymphocytes Percent Auto 10.4 % (25-40); Mean Corpuscular HGB Conc 34.2 % (30-36); Mean Corpuscular Hemoglobin 32.5 PG (26-34); Mean Corpuscular Volume 94.9 fL (80-100); Monocytes Absolute Auto 300 /uL (0-900); Monocytes Percent Auto 6.2 % (3-14); Neutrophils Absolute Auto 3900 /uL (1500-7000); Platelet Count 125 X10^3/uL (150-400); Red Blood Cell Count 3.44 X10^6/uL (4.5-5.9); White Blood Cell Count 4.7 X10^3/uL (4.5-11.0)
[2023-12-09 11:40] LABS: C-Reactive Protein Quant 0.9 mg/dL (<1.0)
[2023-12-09 12:06] LABS: Erythrocyte Sedimentation Rate 44 MM/HR (0-15)
== END ==
PROVIDERS: PCP Family Medicine; Referring Provider Neurological Surgery; Visit Provider Neurological Surgery
DX: T88.9XXA Complication of surgical and medical care, unspecified, initial encounter (principal)
CPT/HCPCS: 36415; 85025; 85651; 86140

== ENCOUNTER → 2024-03-24 15:24 | Outpatient (CLI) | payer MEDICARE, SELFPAY ==
[2024-03-24 15:52] LABS: Add Manual Diff / Slide Review NO; Basophils Absolute Auto 100 /uL (0-100); Basophils Percent Auto 1.3 % (0-2); Eosinophils Absolute Auto 300 /uL (0-450); Eosinophils Percent Auto 6.6 % (2-4); Hemoglobin 10.5 g/dL (13.5-17.5); Lymphocytes Absolute Auto 1400 /uL (1100-4500); Lymphocytes Percent Auto 32.9 % (25-40); Mean Corpuscular HGB Conc 33.9 % (30-36); Mean Corpuscular Hemoglobin 26.2 PG (26-34); Mean Corpuscular Volume 77.3 fL (80-100); Monocytes Absolute Auto 400 /uL (0-900); Monocytes Percent Auto 10.8 % (3-14); Neutrophils Absolute Auto 2000 /uL (1500-7000); Neutrophils Percent Auto 48.4 % (50-75); Platelet Count 191 X10^3/uL (150-400); Red Blood Cell Count 4.02 X10^6/uL (4.5-5.9); Red Cell Distribution Width 15.2 % (11.6-14.8); White Blood Cell Count 4.1 X10^3/uL (4.5-11.0)
[2024-03-24 16:44] LABS: Alanine Aminotransferase 16 IU/L (<50); Albumin 4.4 g/dL (3.5-5.0); Albumin Globulin Ratio 1.5 (1.0-2.8); Alkaline Phosphatase 88 U/L (38-126); Aspartate Aminotransferase 33 IU/L (17-59); BUN Creatinine Ratio 12.2 (6-22); Bilirubin Total 0.9 mg/dL (0.2-1.3); Blood Urea Nitrogen 12 mg/dL (9-20); Calcium 8.9 mg/dL (8.4-10.2); Carbon Dioxide 24 mmol/L (22-32); Chloride 102 mmol/L (98-107); Cholesterol 173 mg/dL (140-199); Estimated Glomerular Filt Rate > 60 mL/min (>60); Globulin 2.9 g/dL (1.7-4.1); Glucose 108 mg/dL (70-100); HDL Cholesterol 36 mg/dL (40-60); HEMOLYSIS < 15 (0-50); LDL Cholesterol Calculated 117 mg/dL (<100); Potassium 4.4 mmol/L (3.4-5.1); Sodium 133 mmol/L (137-145); Total Protein 7.3 g/dL (6.3-8.2); Triglycerides 102 mg/dL (35-150)
[2024-03-24 17:09] LABS: Prostate Specific Antigen Scrn 0.515 ng/mL (0.1-4.0)
== END ==
LOC: LAB 15:26
PROVIDERS: PCP Family Medicine; Referring Provider Family Medicine; Visit Provider Family Medicine
DX: D64.9 Anemia, unspecified (principal); R73.9 Hyperglycemia, unspecified; I10 Essential (primary) hypertension; Z12.5 Encounter for screening for malignant neoplasm of prostate; E78.2 Mixed hyperlipidemia; N40.1 Benign prostatic hyperplasia with lower urinary tract symptoms; N13.8 Other obstructive and reflux uropathy; R74.01 Elevation of levels of liver transaminase levels
CPT/HCPCS: 36415; 80053; 80061; 84402; 84403; 85025; G0103

== ENCOUNTER → 2024-04-15 08:38 | Outpatient (CLI) | payer MEDICARE, SELFPAY ==
--- NOTE | 2024-04-15 08:39 | DI.MRI.S_ITS ---
PROCEDURE: MR SHOULDER RT WO CON INDICATIONS: shoulder pain TECHNIQUE: Noncontrast oblique coronal T2 fast spin echo with fat saturation, oblique sagittal T1 spin echo and T2 fast spin echo with fat saturation, axial T1 spin echo and T2 fast spin echo with fat saturation through the shoulder. COMPARISON: [facility], CR, XR SHOULDER RT MIN 2V, 10/14/2019, 11:44. FINDINGS: Image quality: Portable due to motion artifacts. Rotator cuff: There is full-thickness tear of the supraspinatus and the superior fibers of the infraspinatus tendons with tendon retraction to the musculotendinous junction. There is moderate supraspinatus and infraspinatus muscle atrophy. There is severe subscapularis is with tendon thickening and heterogeneous signal. There is at least high-grade partial-thickness tear of the subscapularis tendon. Mild subscapularis muscle atrophy. Bones and bursae: No bone marrow contusions or fractures. Moderate acromioclavicular and glenohumeral joint degeneration. The acromion demonstrates conventional anatomy, without an os acromiale. Small to moderate glenohumeral joint effusion. Capsule and soft tissues: There is diffuse degenerative labral tearing, most pronounced in the superior and posterior labrum. Severe tendinosis of the long head of the biceps tendon. The intra-articular segment of the long head of the biceps is not well seen, probably torn. The rotator interval appears irregular. The coracohumeral ligament is thickened. IMPRESSION: 1. Supraspinatus and infraspinatus tendon rupturing with tendon retraction to the musculotendinous junction. There is moderate supraspinatus and infraspinatus muscle atrophy. 2. Severe subscapularis tendinitis. There is at least high-grade partial-thickness tendon tear. Mild subscapularis muscle atrophy is present. 3. High-grade tendinosis of the long head of the biceps. Suspect tear of the intra-articular segment of the long head of biceps, which is not well seen. 4. Irregular rotator interval with thickening of coracohumeral ligament. The findings are associated with adhesive capsulitis. Recommend clinical correlation. 5. Small glenohumeral joint effusion. 6. Moderate acromioclavicular and glenohumeral joint arthrosis. 7. Degenerative labral tearing, most pronounced in the superior and posterior labrum. Dictated by: Dony Gill M.D. on 04/15/2024 at 16:54 Approved by: Dony Gill M.D. on 04/16/2024 at 16:06
--- NOTE | 2024-04-15 08:39 | DI.MRI.S_ITS ---
PROCEDURE: MR SHOULDER LT WO CON INDICATIONS: shoulder pain TECHNIQUE: Noncontrast oblique coronal T2 fast spin echo with fat saturation, oblique sagittal T1 spin echo and T2 fast spin echo with fat saturation, axial T1 spin echo and T2 fast spin echo with fat saturation through the shoulder. COMPARISON: [facility], MR, MR SHOULDER RT WO CON, 04/15/2024, 9:18. [facility], CR, XR SHOULDER 2+ VIEWS LEFT, 02/19/2023, 13:13. [facility], CR, XR SHOULDER 2+ VIEWS LEFT, 01/22/2023, 11:41. [facility], CR, XR SHOULDER 2+ VIEWS LEFT, 10/06/2022, 11:32. MR, MR SHOULDER LT W CON, 03/02/2023, 12:10. [facility], MR, MR SHOULDER LT WO CON, 05/07/2022, 11:02. FINDINGS: Image quality: There are significant motion artifacts, degrading images. Rotator cuff: There are postsurgical changes related to rotator cuff tendon repair. There is full-thickness tear of the supraspinatus and infraspinatus tendon. There is severe subscapularis tendinosis. There may be high-grade partial thickness tendon tear. No subscapularis muscle atrophy. Bones and bursae: No bone marrow contusions or fractures. There are postsurgical changes at the acromioclavicular joint with partial resection of the distal clavicle and acromioplasty. There is moderate to severe glenohumeral joint degeneration. Superior migration of humeral head related to chronic rotator cuff tendon tear. There is a small glenohumeral joint effusion. Capsule and soft tissues: There is degenerative labral tear involving the superior labrum. Labral evaluation is limited due to motion artifacts. Question tenodesis versus rupturing of the long head of the biceps tendon. The rotator interval appears irregular. The coracohumeral ligament is thickened. IMPRESSION: 1. Limited examination due to significant motion artifacts. 2. Postsurgical changes related to rotator cuff tendon repair. There is full-thickness tear of the supraspinatus and infraspinatus tendons. There is moderate supraspinatus and infraspinatus muscle atrophy. 3. Severe subscapularis tendinosis. There is likely high-grade partial tendon tear. No subscapularis muscle atrophy. 4. Tenodesis or rupturing of the long head of the biceps tendon. 5. Moderate to severe glenohumeral joint degeneration. 6. Postsurgical changes at AC joint. Dictated by: Dony Gill M.D. on 04/15/2024 at 17:04 Approved by: Dony Gill M.D. on 04/16/2024 at 16:24
== END ==
LOC: MRI 08:39
PROVIDERS: PCP Family Medicine; Referring Provider Family Medicine; Visit Provider Family Medicine
DX: M75.122 Complete rotator cuff tear or rupture of left shoulder, not specified as traumatic (principal); M75.111 Incomplete rotator cuff tear or rupture of right shoulder, not specified as traumatic; M19.011 Primary osteoarthritis, right shoulder; M19.012 Primary osteoarthritis, left shoulder; S43.491A Other sprain of right shoulder joint, initial encounter; M25.411 Effusion, right shoulder; M77.8 Other enthesopathies, not elsewhere classified; M25.511 Pain in right shoulder; M25.512 Pain in left shoulder; M62.512 Muscle wasting and atrophy, not elsewhere classified, left shoulder; M62.511 Muscle wasting and atrophy, not elsewhere classified, right shoulder; Z98.890 Other specified postprocedural states
CPT/HCPCS: 73221

== ENCOUNTER → 2024-08-27 10:54 | Outpatient (CLI) | payer MEDICARE, SELFPAY ==
--- NOTE | 2024-08-27 10:56 | DI.MRI.S_ITS ---
PROCEDURE: MR CERVICAL SPINE WO CON INDICATIONS: Bilateral arm pain and numbness TECHNIQUE: Noncontrast sagittal T1 spin echo and T2 fast spin echo, sagittal STIR, foraminal oblique sagittal T2 fast spin echo, and axial gradient echo or T2 fast spin echo through the cervical spine. COMPARISON: [facility], MR, MR CERVICAL SPINE WO CON, 08/12/2023, 19:26. FINDINGS: Image quality: Excellent. Alignment and Curvature: There is reversal cervical curvature most prominent C3-4. There is trace anterolisthesis of C2 on C3 trace retrolisthesis of C3 on C4. Anterior fusion is present at C5 through C7. Bone Marrow: Marrow demonstrates normal overall signal. Spinal Cord: Visualized spinal cord has normal size and signal. No cerebellar tonsillar herniation. Paraspinous Soft Tissues: No paravertebral masses. Prevertebral soft tissues are normal in thickness. C2-C3: No spinal stenosis. Moderate to severe right and severe left foraminal narrowing with uncovertebral arthropathy, questionably minimally progressive on the right compared to prior exam. Left C3 nerve root impingement is again noted. C3-C4: Mild disc bulge without spinal stenosis. Severe bilateral foraminal narrowing with uncovertebral hypertrophy. There is imprinted Min of the exiting C4 nerve roots bilaterally. Overall appearance is stable. C4-C5: Disc bulge without spinal stenosis. Moderate to severe right and moderate left foraminal narrowing minimally progressive on the left with uncovertebral hypertrophy. C5-C6: Postsurgical fusion. No spinal stenosis. Moderate to severe bilateral foraminal narrowing with uncovertebral hypertrophy, stable. C6-C7: Postsurgical fusion. No spinal stenosis. Moderate bilateral foraminal narrowing, right greater than left with uncovertebral hypertrophy. Overall appearance is stable. C7-T1: No spinal stenosis. Moderate to severe right and moderate left foraminal narrowing with uncovertebral hypertrophy. No interval change. IMPRESSION: Postsurgical C5 through C7 fusion. Multilevel moderate to severe foraminal narrowing with minimal interval progression as above. Dictated by: Taina Uriarte M.D. on 08/29/2024 at 16:01 Approved by: Taina Uriarte M.D. on 08/29/2024 at 16:07
== END ==
LOC: MRI 10:56
PROVIDERS: Family Provider Family Medicine; PCP Family Medicine; Referring Provider Family Medicine; Visit Provider Family Medicine
DX: M54.12 Radiculopathy, cervical region (principal); M48.02 Spinal stenosis, cervical region; M99.07 Segmental and somatic dysfunction of upper extremity; M79.601 Pain in right arm; M79.602 Pain in left arm; R20.0 Anesthesia of skin; R20.2 Paresthesia of skin; Z98.1 Arthrodesis status
CPT/HCPCS: 72141

== ENCOUNTER → 2024-11-11 10:51 | Outpatient (CLI) | payer OTHER, SELFPAY ==
[2024-11-11 12:12] LABS: Add Manual Diff / Slide Review NO; Basophils Absolute Auto 0 /uL (0-100); Basophils Percent Auto 0.9 % (0-2); Eosinophils Absolute Auto 200 /uL (0-450); Eosinophils Percent Auto 6.5 % (2-4); Hematocrit 32.5 % (41-53); Lymphocytes Absolute Auto 1100 /uL (1100-4500); Lymphocytes Percent Auto 31.9 % (25-40); Mean Corpuscular HGB Conc 33.7 % (30-36); Mean Corpuscular Hemoglobin 27.8 PG (26-34); Mean Corpuscular Volume 82.7 fL (80-100); Monocytes Absolute Auto 200 /uL (0-900); Monocytes Percent Auto 7.1 % (3-14); Neutrophils Absolute Auto 1800 /uL (1500-7000); Neutrophils Percent Auto 53.6 % (50-75); Platelet Count 136 X10^3/uL (150-400); Red Blood Cell Count 3.94 X10^6/uL (4.5-5.9); White Blood Cell Count 3.3 X10^3/uL (4.5-11.0)
[2024-11-11 12:30] LABS: Alanine Aminotransferase 21 IU/L (<50); Albumin 4.3 g/dL (3.5-5.0); Albumin Globulin Ratio 1.6 (1.0-2.8); Alkaline Phosphatase 108 U/L (38-126); Aspartate Aminotransferase 34 IU/L (17-59); Bilirubin Total 0.4 mg/dL (0.2-1.3); Blood Urea Nitrogen 15 mg/dL (9-20); Calcium 9.4 mg/dL (8.4-10.2); Carbon Dioxide 29 mmol/L (22-32); Chloride 97 mmol/L (98-107); Cholesterol 188 mg/dL (140-199); Estimated Glomerular Filt Rate > 60 mL/min (>60); Globulin 2.7 g/dL (1.7-4.1); Glucose 98 mg/dL (70-100); HDL Cholesterol 55 mg/dL (40-60); HEMOLYSIS < 15 (0-50); LDL Cholesterol Calculated 115 mg/dL (<100); Potassium 4.6 mmol/L (3.4-5.1); Sodium 131 mmol/L (137-145); Triglycerides 89 mg/dL (35-150)
[2024-11-11 12:33] LABS: Rheumatoid Factor < 8.6 IU/mL (<12.0)
== END ==
PROVIDERS: Family Provider Family Medicine; PCP Family Medicine; Referring Provider Family Medicine; Visit Provider Family Medicine
DX: R79.89 Other specified abnormal findings of blood chemistry (principal); E29.1 Testicular hypofunction; E78.2 Mixed hyperlipidemia; G89.21 Chronic pain due to trauma; I10 Essential (primary) hypertension; D64.9 Anemia, unspecified
CPT/HCPCS: 36415; 80053; 80061; 84402; 84403; 85025; 86200; 86430

== ENCOUNTER → 2025-03-22 13:05 | Outpatient (CLI) | payer OTHER, SELFPAY ==
--- NOTE | 2025-03-22 13:06 | DI.RAD.S_ITS ---
PROCEDURE: XR KNEE LT 3V INDICATIONS: chronic knee pain TECHNIQUE: Three views of the knee were acquired. COMPARISON: None. FINDINGS: Bones: There are no osseous abnormalities. Joints: Severe patellofemoral and tibiofemoral degenerative change noted Soft tissues: Normal IMPRESSION: Severe degeneration Dictated by: Ken Morfin M.D. on 03/23/2025 at 11:00 Approved by: Ken Morfin M.D. on 03/23/2025 at 11:01
== END ==
PROVIDERS: Family Provider Family Medicine; PCP Family Medicine; Referring Provider Family Medicine; Visit Provider Family Medicine
DX: M25.562 Pain in left knee (principal); G89.29 Other chronic pain; M17.12 Unilateral primary osteoarthritis, left knee
CPT/HCPCS: 73562

== ENCOUNTER → 2025-08-28 10:37 | Outpatient (CLI) | payer OTHER, SELFPAY ==
--- NOTE | 2025-08-28 10:39 | EKG_ITS ---
[facility] [address] [place] [address] Test Date: 2025-08-28 Pat Name: Steffen Rizvi Department: [facility] Room: Gender: Male [employer]: : 1965 Requested By: Order Number: [id number] Reading MD: Ken Arroyo MD Measurements Intervals [place] Rate: 67 P: 49 NH: 164 QRS: 35 QRSD: 96 T: 46 QT: 394 QTc: 416 Interpretive Statements Normal sinus rhythm Electronically Signed On 09-03-2025 9:02:34 PST by Ken Arroyo MD
[2025-08-28 11:01] LABS: Add Manual Diff / Slide Review NO; Hematocrit 40.7 % (41-53); Hemoglobin 13.5 g/dL (13.5-17.5); Lymphocytes Absolute Auto 1000 /uL (1100-4500); Mean Corpuscular HGB Conc 33.2 % (30-36); Mean Corpuscular Hemoglobin 25.6 PG (26-34); Mean Corpuscular Volume 77.4 fL (80-100); Platelet Count 187 X10^3/uL (150-400)
[2025-08-28 11:09] LABS: Hemoglobin A1C% w Est Avg Glu 5.8 % (4.0-6.0)
[2025-08-28 11:22] LABS: Albumin 4.8 g/dL (3.5-5.0); Blood Urea Nitrogen 10 mg/dL (9-20); Calcium 9.4 mg/dL (8.4-10.2); Carbon Dioxide 27 mmol/L (22-32); Chloride 88 mmol/L (98-107); Estimated Glomerular Filt Rate > 60 mL/min (>60); Glucose 112 mg/dL (70-99); HEMOLYSIS < 15 (0-50); Potassium 5.0 mmol/L (3.4-5.1); Sodium 123 mmol/L (137-145)
[2025-08-28 11:29] LABS: Prealbumin 26.2 mg/dL (17.6-36.0)
[2025-08-28 11:38] LABS: Vitamin D 25 Hydroxy (D3) 26.1 ng/mL (30.0-100.0)
== END ==
PROVIDERS: PCP Family Medicine; Referring Provider Family Medicine; Visit Provider Orthopaedic Surgery Adult Reconstructive Orthopaedic Surgery
DX: Z01.818 Encounter for other preprocedural examination (principal)
CPT/HCPCS: 36415; 80048; 82040; 82306; 83036; 84134; 85025; 93005; 93010

== ENCOUNTER 2025-09-25 10:26 | Day surgery (SDC) | payer OTHER, SELFPAY ==
[2025-09-18 08:09] VITALS: BMI 31.2
[2025-09-25] VITALS (14 sets, daily range): BP systolic 105–179; BP diastolic 55–107; PULSE 78–102; RESP 13–20; TEMP 36.1–37.1; O2SAT 94–99; BMI 29.6
--- NOTE | 2025-09-25 06:00 | DI.RAD.S_ITS ---
PROCEDURE: XR KNEE LT 1TO2V INDICATIONS: TKA TECHNIQUE: 2 view(s) of the knee acquired. COMPARISON: [facility], CR, XR KNEE LT 3V, 03/22/2025, 13:01. FINDINGS: Bones: Patient is status post knee joint arthroplasty. Hardware components are in expected positions. Visualized bony structures are intact. Soft tissues: Overlying postoperative changes are noted. IMPRESSION: Expected post-operative appearance of a knee arthroplasty. Dictated by: Apryl Damico M.D. on 09/26/2025 at 6:23 Approved by: Apryl Damico M.D. on 09/26/2025 at 6:23
[2025-09-25] MEDS: MELOXICAM 7.5 MG TABLET 15 MG PO (11:14)
[2025-09-25] MEDS: ACETAMINOPHEN 325 MG TABLET 975 MG PO ×2 (11:15→21:28)
[2025-09-25 11:17] LABS: Blood Urea Nitrogen 12 mg/dL (9-20); Calcium 9.4 mg/dL (8.4-10.2); Carbon Dioxide 26 mmol/L (22-32); Chloride 89 mmol/L (98-107); Estimated Glomerular Filt Rate > 60 mL/min (>60); Glucose 109 mg/dL (70-99); HEMOLYSIS < 15 (0-50); Potassium 4.5 mmol/L (3.4-5.1); Sodium 125 mmol/L (137-145)
--- NOTE | 2025-09-25 11:38 | PM.PREOP ---
Pre-operative Note Interval Note History & Physical reviewed/Exam performed by Physician: Yes Changes to H&P: Yes H&P completed within 30 days and has changed as indicated here:: Sodium rechecked today. 125. Trending upwards. Discussed with anesthesia who is comfortable with moving forward with surgery. Discussed with patient and recommended he followup outpatient for evaluation of the etiology of his hyponatremia.
[2025-09-25] MEDS: TRANEXAMIC ACID 1,000 MG in SODIUM CHLORIDE 0.9% 100 ML 200 MG IV ×2 (13:07→15:07)
--- NOTE | 2025-09-25 13:27 | SUR.OPER ---
Supine on padded OR bed. Pillow under head, arms secured on padded armboards <90 degree abduction. Safety belt across torso. Non-operative leg secured with tape over blanket over lower leg. Operative leg secured in Ben positioner. Foam padded brace at thigh of operative leg.
[2025-09-25] MEDS: KETOROLAC 30 MG/ML VIAL 15 MG INJ (15:06)
[2025-09-25] MEDS: LACTATED RINGERS 1,000 ML 42 ML IV (15:20)
--- NOTE | 2025-09-25 15:20 | P.OP_ITS ---
Operative Date/Time/Diagnoses Date of procedure: 09/25/25 Time of procedure: 14:00 Pre-op diagnosis: Left knee osteoarthritis Post-op diagnosis: same Procedure & Clinicians Procedure: Left total knee arthroplasty Same procedure(s) as scheduled: Yes Surgeon: Viktor Molina Assisted?: Yes Delivery Recruiter: Nancy Duval Anesthesia Type: Spinal, Sedation, Peripheral nerve block and Local Operative Notes Findings: Severe arthritis Applied: implant(s) Estimated Blood Loss (mL): 100 Tourniquet time (min): 60 Procedure in detail: Left Gap-Balanced Amanda Persona Medial-Congruent Primary Total Knee Arthroplasty Implants: * Size 11 Cruciate Retaining Femoral Component * Size G Tibial Component * Size 10 Medial Congruent Polyethylene Insert * Unresurfaced Patella Procedure Summary: This 59-year-old male patient had valgus arthritis. I used mechanical axis cuts and found that he was balanced without the need for soft tissue releases following those resections. His bone quality was very high and I had to bring up a new saw blade for the 4 in 1 cuts on the femur as the blade had dulled from cutting the tibia. There was a significant amount of scar in the distal femur as well as the prepatellar bursa. The knee balanced at 0? of external rotation. He was fairly stiff so I did recut the tibia after initially making a +2 cut, cutting it at +4 in order to get full extension with a size 10 spacer block. Procedure in Detail: This patient was seen preoperatively and evaluated for knee pain which was refractory to numerous nonoperative treatment modalities. Their pain correlated with radiographic changes demonstrating significant degeneration in the knee joint. The risks and benefits of continued nonoperative management versus operative management were discussed at length and all of the patient?s questions were answered. Additional educational materials providing further details beyond our discussion in clinic were provided via a publicly available patient education video which included the incidence of medical complications associated with total knee arthroplasty, reasons for revision following total knee arthroplasty, and patient satisfaction rates following total knee arthroplasty. With this understanding of the risks inherent to the procedure, the patient elected to move forward with operative management. Following preoperative optimization, the patient was scheduled for surgery. The patient was met in the preoperative holding area the day of the procedure and all questions were answered. The patient?s nares were swabbed in order to decolonize them from MRSA. Informed consent was signed and the left limb was marked with indelible ink.? The patient was brought back to the operating room where anesthesia was induced. The patient was transferred to the operating table and all bony prominences were padded. The operative site was prepped and draped in the usual sterile fashion. A second prep stick was utilized following drape placement. The incision was marked corresponding to the medial aspect of the tibial tubercle and the patella. Ioban was wrapped circumferentially around the knee. Prior to incision, tranexamic acid and cefazolin were administered. Templating images were d isplayed. A timeout procedure was performed verifying the patient?s identity, medical comorbidities, allergies, relevant medications, anesthesia type and the surgical plan. All present were in agreement. The assistance of a physician assistant front end manager was required for positioning, room setup, soft tissue retraction and wound closure. Without this assistance, the procedure would have been significantly more challenging and time consuming.?? The tourniquet was inflated prior to incision. I made an anterior incision over the knee, dissected through the subcutaneous tissues and identified the lateral border of the VMO. Medial and lateral soft tissue flaps were developed. A mid- vastus arthrotomy was performed ensuring that adequate capsular tissue would remain for closure at the conclusion of the procedure. The knee was brought into extension and the medial soft tissues were released off the joint line of the tibia. Tissue overlying the distal anterior femur was released to allow for later assessment for anterior notching but left in place. A portion of the retropatellar fat pad was excised while protecting the patellar tendon. The patella was everted. The patella was not resurfaced. Osteophytes were excised and a lateral facetectomy was performed. The patella was released from its everted position.?? I flexed the knee to 90 degrees and placed retractors to allow access to the notch. An opening reamer was used to gain access to the femoral canal and an intramedullary saray was introduced into the canal. Diaphyseal fit was obtained in order to plan a distal femoral resection at 5 degrees relative to the anatomic axis. A +1 resection was planned and assessed using an janine wing. I then made the cut using a sagittal saw. This provided additional access to the femoral notch. The ACL and PCL were excised. Retractors were placed on the lateral and medial tibia. I hyperflexed the knee while externally rotating it to sublux the tibia anteriorly. I placed a Shilpa retractor posteriorly and used this to provide additional anterior subluxation. The remainder of the PCL root was released. An extramedullary guide was positioned for a resection perpendicular to the anatomic and mechanical axes of the tibia, thereby aiming to achieve mechanical alignment of the eventual implant. A +4 resection off the medial tibia was planned and the tibial cutting jig was pinned in place. I evaluated the depth, varus-valgus alignment and slope of the planned tibial resection prior to making the cut. I cut the tibia with a sagittal saw while using retractors to protect the MCL, patellar tendon, and posterolateral structures.? The knee was repositioned in extension and the Fuzion soft tissue balancing gauge was introduced. This demonstrated that there was equal tension in the medial and lateral compartments of the knee with the knee in full extension and no additional soft tissue releases were necessary. When 40 pounds of force was applied to the Fuzion device, the extension gap opened to 10 mm. I moved the knee into 90 degrees of flexion, and the Fuzion device was recalibrated by removing a 9 mm anupam to allow assessment of the flexion gap. The Fuzion block was placed perpendicular to the resected surface of the tibia and the resected surface of the distal femur. Forty pounds of traction was applied to match the tension of the extension gap. This externally rotated the femur to 0 degrees. Pins were placed in the 10 mm holes. Appropriate sizing was determined and a 4-in-1 block was placed. This was double checked using the Fuzion device to ensure that it would open to an equal distance as the extension gap when the same amount of force was applied. The Fuzion block was also used to assess flexion gap symmetry. An janine wing was used to ensure there would be no anterior notching. Retractors were placed to protect the soft tissues during resection. Captured cuts were performed with a sagittal saw for the anterior and posterior femur as well as the corresponding chamfers.?A laminar clinical psychologist licensed and retractors were used to expose the posterior knee and the menisci and posterior osteophytes were removed. Trial components were placed and the construct was assessed. Range of motion was assessed by ensuring the knee could achieve full extension and assessing maximum passive knee flexion by elevating the femur and allowing the heel to passively fall towards the buttock. Gap symmetry was assessed by stressing the medial and lateral compartments in both extension and flexion. Laxity was assessed in both extension and flexion and the polyethylene trial was adjusted with shims as necessary. Patellar tracking was assessed with knee flexion. Once satisfied with the construct, I moved forward with implant insertion. Lug holes were drilled in the femur and the tibia was prepped ensuring appropriate sizing and rotation relative to the tibial tubercle.?? The bony ends were irrigated. A portion of the anterior chamfer cut was utilized as a to plug the hole from the intramedullary saray in the femur. I impacted the tibial component into place. The tibia was reduced underneath the femur. I placed the femoral component. I brought the knee into extension and manually pr essurized the construct by pushing on the heel. The knee was bathed in a dilute mixture of betadine and peroxide. A mixture of Ropivacaine, Epinephrine and Toradol was infiltrated throughout the soft tissues into structures including the VMO, patellar tendon, quadriceps tendon, MCL and femoral periosteum. The knee was copiously irrigated with pulse lavage. The knee was again trialed. Range of motion was assessed by ensuring the knee could achieve full extension and assessing maximum passive knee flexion by elevating the femur and allowing the heel to passively fall towards the buttock. Gap symmetry was assessed by stressing the medial and lateral compartments in both extension and flexion. Laxity was assessed in both extension and flexion and the polyethylene trial was adjusted with shims as necessary. Patellar tracking was assessed with knee flexion. The tourniquet was let down and the polyethylene trial was removed. I inspected the knee inspected for any residual bleeding. Once hemostasis was achieved I inserted the final polyethylene and ensured appropriate engagement of the dovetail locking mechanism.?? The arthrotomy was closed with non-absorbable interrupted suture ensuring that this extended to the top of the arthrotomy. This was backed up with running barbed suture throughout the arthrotomy. The skin was closed with 2-0 and 3-0 sutures. Surgical glue was applied and a soft dressing was placed.?The sponge, instrument and needle counts were reported as being correct at the end of the case. The patient was transferred from the operating table back to a stretcher. The patient emerged from anesthesia without difficulty and was taken to the PACU in a stable condition.? Plan for aftercare: * Weightbearing as tolerated * Aspirin 81 twice per day for DVT prophylaxis * Multimodal pain regimen with no IV opioids ordered * Anticipate discharge home tomorrow. Patient will have to travel home via boat. * Follow up at [facility] in 2 weeks for wound check Complications: none Post-operative Condition: stable Disposition: observation
[2025-09-25] MEDS: LACTATED RINGERS 1,000 ML 100 ML IV ×2 (17:07→23:30)
--- NOTE | 2025-09-25 18:50 | PC.NURSE ---
Notified surgeon MD Molina of hypertension 169/97 (pt lisinopril held today d/t surgery); MD Molina instructed permissive hypertension up to sys 190 okay. No other new orders at this time.
[2025-09-25] MEDS: SENNOSIDES 8.6 MG TABLET 17.2 MG PO (21:29)
[2025-09-25] MEDS: DOCUSATE 100 MG CAPSULE PO (21:29)
[2025-09-25] MEDS: ASPIRIN EC 81 MG TABLET PO (21:29)
[2025-09-25] MEDS: GABAPENTIN 300 MG CAPSULE 900 MG PO (21:35)
[2025-09-26] VITALS: BP 111/56; PULSE 95; RESP 20; TEMP 36.7; O2SAT 95
--- NOTE | 2025-09-26 01:39 | PC.NURSE ---
Patient is alert and oriented and very jovial. Breath sounds CTA with RA sat > 95%; on continuous oximetry. HRR but tachy at 102 bpm and BP elevated at 179/107. Patient normally takes Lisinopril and did not have his dose this morning. Lisinopril is ordered and scheduled for 0900 09/26 but since he hadn't had his dose for 09/25 a dose was given tonight and upon recheck BP much improved at 111/56. Denied nausea. BT present but is not yet passing flatus. Able to void using urinal and denied any dysuria. Is able to move himself in bed. Has not yet been out of bed and declined to do so tonight. Has long standing neuropathy in left foot and lower leg which he states is unchanged. Numbness from epidural has resolved and CMS is intact. Aquacel dressing to left knee covered with shakila bandage is CDI. Having significant pain in left knee and inner left thigh so has been receiving Oxycodone for pain and using ice packs. Is wearing bilateral calf SCD's. Fall risk score is high as had fall on Thursday so bed alarm is activated.
[2025-09-26 04:00] VITALS: BP 121/67; PULSE 86; RESP 20; TEMP 36.4; O2SAT 96
[2025-09-26 06:44] LABS: Add Manual Diff / Slide Review NO; Hematocrit 27.6 % (41-53); Hemoglobin 9.4 g/dL (13.5-17.5); Lymphocytes Absolute Auto 400 /uL (1100-4500); Mean Corpuscular HGB Conc 34.2 % (30-36); Mean Corpuscular Hemoglobin 27.7 PG (26-34); Mean Corpuscular Volume 80.9 fL (80-100); Platelet Count 138 X10^3/uL (150-400)
[2025-09-26 06:58] LABS: Blood Urea Nitrogen 18 mg/dL (9-20); Calcium 8.4 mg/dL (8.4-10.2); Carbon Dioxide 26 mmol/L (22-32); Chloride 92 mmol/L (98-107); Estimated Glomerular Filt Rate > 60 mL/min (>60); Glucose 180 mg/dL (70-99); HEMOLYSIS < 15 (0-50); Potassium 4.9 mmol/L (3.4-5.1); Sodium 124 mmol/L (137-145)
--- NOTE | 2025-09-26 07:01 | PM.DS.IH.1 ---
History of Present Illness History of Present Illness Date Patient Seen: 09/26/25 Chief complaint: Left Total Knee Arthroplasty Narrative: History of Present Illness:? Attending: Dr. Viktor Molina?? Orthopedic Procedures: Left Total Knee Arthroplasty?? 59-year-old male with a past medical history of chronic pain (on chronic oxycodone 80 mg per day) and history of spinal surgery with subsequent staph infection leading to antibiotics via PICC line. He presented to [facility] on 09/25/2025 for planned left total knee arthroplasty by Dr. Molina. This elective procedure was indicated by chronic left knee arthritis that failed to improve sufficiently with conservative treatment. ?He described his pain as debilitating and constant causing difficulty performing daily activities. On the date of surgery there were no changes to the patient?s medical history, medications or allergies. Consent had been obtained and the patient agreed to proceed with planned surgery.? Discharge Providers Provider Discharge Date: 09/26/25 Primary care physician: Yordy Fernando DO Consults: 09/25/25 16:38 Consult to Physical Therapy Evaluate & Treat Comment: Physician Instructions: Eval and Treat Discharge provider: SUNDEEP Celestin Dr Summary Hospital Course Hospital Course: Hospital Course:? On 09/25/2025 the patient was brought to the operating room for planned left total knee arthroplasty by Dr Molina. There were no known intraoperative complications. The patient was transferred to the postoperative recovery area and monitored appropriately.Later the patient was transferred to the acute care unit [facility] for monitoring overnight and physical therapy.There were no acute events overnight.?? On postoperative day one, the patient's vital signs were stable, and he was making urine spontaneously.The patient was awaiting physical therapy evaluation during orthopedic rounds. Pain was controlled on oral analgesics including acetaminophen and ibuprofen as well as chronic oxycodone 10 mg every 3 hours with the addition of 10 mg of oxycodone as needed for breakthrough pain. He did not use any Flexeril overnight. Journavax was not on formulary and so he did not receive this medication at [facility]. He was also unable to receive cefadroxil postoperatively as it was unavailable at the hospital, instead he received cefazolin at [facility]. He will resume cefadroxil when he returns home. The patient agreed with preoperative plan to discharge home on postoperative day one via taxi. They have no acute concerns or questions.?? ROS today: no chest pain, dyspnea, fever, chills, nausea or emesis?? Exam Vital Signs (past 8 hours): - 09/26/25 00:00 09/26/25 04:00 Temperature 98.0 F 97.6 F Pulse Rate 95 H 86 Respiratory Rate 20 20 Blood Pressure 111/56 L 121/67 Pulse Oximetry 95 96 Oxygen Flow Rate 0 0 Oxygen Delivery Method Room Air Oxygen Flow Rate 0 Narrative Exam Narrative: Well developed, well-nourished 59 year old male, resting comfortably? Normal respiratory effort on room air without accessory muscle use? Dressing is clean, dry and intact to the left knee without drainage. No hematoma.? Flexion and extension of the first hallux, ankle and knee are intact?? Calves are soft and non-tender to operative extremity, SCDs in place? Neurovascularly intact to left lower extremity? Objective ECG Impression: Sodium 124 Chloride 92 Hemoglobin 9.4 Labs 09/26/25 06:25 09/26/25 06:25 Labs: Laboratory Results - last 24 hr 09/25/25 09/25/25 09/26/25 10:50 11:06 06:25 WBC 9.0 RBC 3.41 L Hgb 9.4 L Hct 27.6 L MCV 80.9 MCH 27.7 MCHC 34.2 RDW 18.1 H Plt Count 138 L Neut % (Auto) 88.3 H Lymph % (Auto) 4.4 L Cache % (Auto) 7.2 Eos % (Auto) 0.0 L Baso % (Auto) 0.1 Neut # (Auto) 8000 H Lymph # (Auto) 400 L Cache # (Auto) 600 Eos # (Auto) 0 Baso # (Auto) 0 Sodium 125 L 124 L Potassium 4.5 4.9 Chloride 89 L 92 L Carbon Dioxide 26 26 BUN 12 18 Creatinine 0.91 0.98 Estimated GFR > 60 > 60 BUN/Creatinine Ratio 13.2 18.4 Glucose 109 H 180 H POC Whole Bld Glucose 97 Calcium 9.4 8.4 PFSH Medical History (Updated 09/07/25 @ 19:06 by Yordy Fernando DO) Other chronic postoperative pain Arthritis of knee, left Erectile dysfunction Chronic pain of right knee Segmental and somatic dysfunction of rib cage Carpal tunnel syndrome, right Trigger finger, right Hand pain, right Chronic pain due to trauma Cervical radiculopathy Upper extremity somatic dysfunction Segmental and somatic dysfunction of abdomen and other regions Sacral region somatic dysfunction Pelvic somatic dysfunction Lumbar region somatic dysfunction Thoracic region somatic dysfunction Cervical somatic dysfunction Cranial somatic dysfunction 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 Elevated testosterone level in male Transaminitis Normocytic anemia Insomnia Postoperative infection 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 Perineal numbness Chronic bilateral low back pain with bilateral sciatica Fecal incontinence Urinary bladder incontinence Chronic pain of both shoulders Chronic, continuous use of opioids RUQ abdominal pain Cholecystitis, unspecified Abnormal urinalysis Dysphagia Bilateral testicular atrophy Pain in both testicles Testicular pain BPH w urinary obs/LUTS Alcohol use disorder Anxiety and depression Postoperative pain, acute, shoulder Right testicular pain Chronic left shoulder pain Hypogonadism in male Elevated liver function tests Hyperglycemia Mixed hyperlipidemia Chronic neck pain Low back pain Surgical History History of repair of left rotator cuff S/P shoulder surgery S/P lumbar laminectomy S/P carpal tunnel release Hx of cervical spine surgery Social History household members: spouse Smoking Status: Never smoker alcohol intake: current Discharge Assessment & Plan Assessment and Plan Plan of Treatment: 59-year-old male with a past medical history of chronic pain (on chronic oxycodone 80 mg per day) and history of spinal surgery with subsequent staph infection leading to antibiotics via PICC line is post operative day 1 from a left total knee arthroplasty by Dr. Molina at [facility] on 09/25/2025. The patient is recovering well with appropriate pain control on oral analgesics and stable vital signs. The patient is comfortable with planned discharge home today on post operative day one after physical therapy. Plan:? Weight bearing as tolerated to operative extremity with front wheeled walker? Antibiotics: 1 postoperative doses of Ancef, cefadroxil at home given history of staph infection after back surgery ? DVT prophylaxis: 81 mg of aspirin by mouth twice daily? Pain control: multimodal analgesia with acetaminophen, meloxicam and oxycodone. Minimize use of opioid medication understanding he chronically takes oxycodone for pain management. Journavax at home. ? Ice to surgical site ? Bowel regimen: docusate sodium twice daily for constipation? Physical therapy evaluation today prior to discharge? Follow up: 2 week follow up at [facility]? Discharge medications: none. Post operative medications were prescribed prior to surgery? Disposition: home today?? All patient questions were answered, and they verbalized agreement with the above plan. Call [facility] or senior applications engineer provider with any questions or concerns. Discharge Plan Discharge Plan Provider Discharge Comment: SURGICAL PROCEDURE: Left Total Knee Arthroplasty SURGEON: Dr. Molina at [facility] DATE: 09/25/2025 ACTIVITY INSTRUCTIONS - You are weight bearing as tolerated to the left lower extremity with a front wheeled walker at all times. We encourage active movement of the toes and ankle every hour while awake to prevent stiffness. - Do not drive while taking narcotic medications and recovering from your surgery. - We want you to follow a quiet knee protocol for the first two weeks after surgery. This means: Do not stand for more than 20 minutes at a time Ambulate less than 1,000 steps per day Bend the knee as far as you can with your own muscles and straighten it all the way out by resting your heel on a flat surface and letting your knee hang down Avoid anyone pushing your knee to bend it or straighten it - After two weeks we will want you to get more aggressive in your work with physical therapy, but we need to let your body heal first DRESSING CARE - You have an aquacell dressing on top of your incision. This is a waterproof dressing and so you may shower with the dressing so long as the dressing remains clean and dry to the surgical site. Leave the dressing in place until your follow up in the orthopedic clinic. If the dressing becomes saturated or is disrupted call our office for further guidance. - Your dressing is covered with a soft cotton dressing and shakila wrap for compression. You may remove these dressings when you return home but should leave the waterproof dressing in place. POST-OPERATIVE INSTRUCTIONS - If you notice fever, chills, night sweats, redness, excessive drainage or bleeding, a sharp increase in pain that persists after taking pain medication, pain in your calf muscles, chest pain or trouble breathing please unwrap the dressing and investigate. Then call the office with findings for further guidance. If it is after regular clinic hours, please seek care in the emergency department. - In the rare case of any severe chest pain and trouble breathing, seek immediate care, do not delay for a call to the clinic. - Use ice to the affected extremity for 15-30 minutes increments as much as possible. Use your ice machine as discussed in your pre-operative visit. - Keep extremity elevated to the level of the heart to reduce swelling. You can use ice on top of the dressing to reduce pain and swelling of the extremity. - You should consume a normal diet after surgery. You can gradually resume your normal diet if you have no nausea or vomiting - Physical therapy should begin about 7-10 days after surgery. Your first evaluation should already be scheduled. Call our office if you cannot schedule your therapy in the expected time frame. - Your follow up is already scheduled for 2 weeks after your surgery at the Orthopedic clinic. - You should have no dental procedures for 6 months following your total joint replacement. - Please refer to Dr. Molina?s educational videos on YouTube for a reference on your post operative care. [email or web address] - Call [facility] at [phone] with any questions or concerns. - Please follow up with her primary care provider regarding your low-sodium. Your sodium was monitored in the hospital and was stable MEDICATIONS - Please refer to the ?Orthopedic Medication Instructions? sheet provided at your pre-operative visit. Written instructions are provided below as a reminder. - Take two pills of 500 mg Tylenol (acetaminophen) every 8 hours regardless of pain in a scheduled manner. Do not exceed 3000 mg of Tylenol (from ALL sources, including over the counter combination products) in a 24-hour period due to risk of liver injury. - Take one pill of oral meloxicam daily. This is NSAID (anti-inflammatory) medication to reduce swelling and pain. - Take one pill of 10 mg oxycodone by mouth every 3-4 hours in accordance with your chronic oxycodone regimen. - Take Journavax (suzegtrigine) 50 mg by mouth every 12 hours. This medication will help with pain control post operatively. - Take 200 mg of Colace by mouth every 12 hours for constipation. Narcotic medications such as oxycodone and tramadol as well as anesthesia may increase your risk of constipation after surgery. - Take 4 mg of Zofran by mouth every 6 hours as needed for uncontrolled nausea or vomiting. If you have persistent nausea and vomiting call our office or seek care in the emergency department. - Take one pill of 81 mg of aspirin two times daily 12 hours apart for 6 weeks for blood clot prevention. Take this medication regardless of pain. - Take three pills of 650 mg tranexamic acid once daily for 3 days following surgery. This is to reduce bleeding and swelling in your knee. - Take one pill of 500 mg of Cefadroxil twice daily for 10 days after your surgery. This is an antibiotic to reduce risk of infection. Take the entire course of this medication, do not stop it early. - Take a proton pump inhibitor such as Pantoprazole or Omeprazole if you have a history of acid reflux or are noticing stomach irritation. NSAIDs and aspirin can both cause stomach irritation and that medication can help avoid stomach issues. - If you stopped taking a ?biologic? medication that you normally take for an issue such as rheumatoid arthritis or psoriasis prior to surgery, do not restart it until we have seen you back in clinic and confirmed that your wound is healed. - Resume all of your normal home medications tomorrow morning unless specified otherwise by your surgeon. Discharge orders & Medications Discharge Orders: Discharge (Order); Ordered 09/26/25 Ordered By: Nancy Duval Prescriptions: No Action atorvastatin 10 mg tablet 10 mg PO DAILY Qty: 90 3RF gabapentin 300 mg capsule 900 mg PO 3XD Qty: 360 0RF indomethacin 25 mg capsule 25 mg PO 3XD Qty: 90 2RF trazodone 50 mg tablet 50 mg PO BEDTIME Qty: 90 3RF carisoprodol 350 mg tablet 350 mg PO TID PRN (Reason: muscle pain) Qty: 90 5RF duloxetine 60 mg capsule,delayed release(DR/EC) 60 mg PO BID Qty: 180 2RF cyclobenzaprine 10 mg tablet 10 mg PO TID PRN (Reason: muscle spasm) Qty: 60 0RF Rx Instructions: Take one tab by mouth three times daily as needed for muscle spasms. testosterone cypionate 200 mg/mL oil See Rx Instructions .ROUTE .COMPLEX Qty: 10 5RF Rx Instructions: Inject 50 mg or 0.25 mL intramuscularly every 2 weeks tretinoin [Retin-A] 0.05 % cream 1 applic TOP BEDTIME PRN (Reason: Cysts) Qty: 45 1RF cholecalciferol (vitamin D3) 50 mcg (2,000 unit) capsule 100 mcg PO DAILY 90 Days Qty: 180 0RF oxycodone 10 mg tablet See Rx Instructions PO Q4H PRN (Reason: pain) Qty: 240 0RF Rx Instructions: Take 1-2 tabs orally every 4 hours PRN; lisinopril 20 mg tablet 20 mg PO DAILY Qty: 90 3RF (DME) Monoject Safety Syringes 3 mL 20 gauge x 1 1/2 syringe See Dose Instructions .ROUTE .MEDSUPPLY Qty: 100 11RF Dose Instruction: As directed Rx Instructions: Use to draw up and inject tesosterone every two weeks tadalafil 10 mg tablet 10 mg PO DAILY PRN (Reason: sexual activity) Qty: 20 3RF Rx Instructions: administer approximately 30min before sexual activity; do not use more than 1 dose per 24hrs meloxicam 15 mg tablet 15 mg PO DAILY 30 Days Qty: 30 0RF acetaminophen 500 mg tablet 1,000 mg PO TID 30 Days Qty: 90 0RF pantoprazole 40 mg tablet,delayed release (DR/EC) 40 mg PO DAILY Qty: 30 0RF Rx Instructions: Take daily while taking aspirin and meloxicam aspirin 81 mg tablet 81 mg PO BID 45 Days Qty: 90 0RF Journavx 50 mg tablet 50 mg PO Q12H 30 Days Qty: 60 0RF Rx Instructions: Take 2 tablets for a 100 mg loading dose and then take 1 tablet every 12 hours Follow up/Referrals: Yordy Fernando DO [Primary Care Provider, Family Practice] Visit Report/Discharge Packet Instructions: DI for Knee Replacement Stand Alone Forms: Surgery Discharge Print Language: Romanian Discharge Data Primary Care Provider: Yordy Fernando Attending Provider: Viktor Molina VTE Deep Vein Thrombosis/Pulmonary Embolism Present on Admission: No IH PROFEE Charge Codes Discharge inpatient/observation: 50210
[2025-09-26 07:48] VITALS: BP 123/70; PULSE 88; RESP 18; TEMP 36.8; O2SAT 98
[2025-09-26] MEDS: PANTOPRAZOLE DR 40 MG TABLET PO (09:09)
[2025-09-26] MEDS: ATORVASTATIN 20 MG TABLET 10 MG PO (09:09)
[2025-09-26] MEDS: CHOLECALCIFEROL (VITAMIN D3) 1,000 UNIT TABLET 2000 UNIT PO (09:09)
[2025-09-26] MEDS: ACETAMINOPHEN 325 MG TABLET 975 MG PO (09:13)
[2025-09-26] MEDS: CEFADROXIL 500 MG CAPSULE PO (09:15)
[2025-09-26] MEDS: ASPIRIN EC 81 MG TABLET PO (09:15)
[2025-09-26] MEDS: INFLUENZA VACCINE 0.5 ML SYRINGE IM (10:08)
--- NOTE | 2025-09-26 11:18 | PT.IIE ---
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 Arthritis of knee, left 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 Carpal tunnel syndrome, right Cervical radiculopathy Cervical somatic dysfunction Cholecystitis, unspecified Chronic bilateral low back pain with bilateral sciatica Chronic left shoulder pain Chronic neck pain Chronic pain due to trauma Chronic pain of both shoulders Chronic pain of right knee Chronic, continuous use of opioids Cranial somatic dysfunction Dysphagia Elevated liver function tests Elevated testosterone level in male Erectile dysfunction Fecal incontinence Hand pain, right 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 Hyperglycemia Hypogonadism in male Insomnia Low back pain Lumbar region somatic dysfunction Mixed hyperlipidemia Normocytic anemia Other chronic postoperative pain Pain in both testicles Pelvic somatic dysfunction Perineal numbness Postoperative infection Postoperative pain, acute, shoulder Right testicular pain RUQ abdominal pain Sacral region somatic dysfunction Segmental and somatic dysfunction of abdomen and other regions Segmental and somatic dysfunction of rib cage Testicular pain Thoracic region somatic dysfunction Transaminitis Trigger finger, right Upper extremity somatic dysfunction Urinary bladder incontinence Physical Therapy Inpatient Evaluation/Re-Eval M1 PT IP Prior Functional Status Start: 09/26/25 07:35 Freq: NEEDED Status: Discharge Protocol: Document 09/26/25 11:18 LRN (Rec: 09/26/25 12:05 LRN [id number]) Medical Review Prior Functional Status Medical History Yes Reviewed Diet/Fluid Regular Consistency Communication Normal Mobility and Gait Independent, walked with L knee pain without an assistive device. Activities of Daily Independent Living and IADL's Social History Household Members spouse Living Arrangements House Number of Floors ( One Floor Floors) Number of Stairs To 0 Enter/Railing? Home Environment Standard Height Toilet,Walk in Shower Home Equipment Crutches Additional Social Pt has standard walker, states he has crutches that he History Comment has used before and will probably use crutches instead, as the walker changes his gait. M2 PT-IP Current Condition Start: 09/26/25 07:35 Freq: NEEDED Status: Discharge Protocol: Document 09/26/25 11:18 LRN (Rec: 09/26/25 12:05 LRN [id number]) Physical Therapy Current Condition Current Condition Evaluation Date 09/26/25 Treatment Diagnosis Impaired mobility, decr'd amb ability due to pain, decr 'd L knee ROM/streng Onset Date 09/25/25 M3 PT-IP Subjective Start: 09/26/25 07:35 Freq: NEEDED Status: Discharge Protocol: Document 09/26/25 11:18 LRN (Rec: 09/26/25 12:05 LRN [id number]) Subjective Physical Therapy Visit Type Type Initial Evaluation Visit Start Time 08:23 Visit Stop Time 11:05 Notes Break in treatment time from 08:37-10:40 Physical Therapy Visit Comments Patient Comments Pt wanting to go home, but to have spouse present during PT treatment. Patient Goals Home with assist as needed. Therapy Pain Assessment Pain When Pain Assessed At Rest Location Left Knee Intensity 8 Scale Used Numeric (0 - 10) Pain Management Apply Cold Techniques M4 PT-IP Mobility and Gait Start: 09/26/25 07:35 Freq: NEEDED Status: Discharge Protocol: Document 09/26/25 11:18 LRN (Rec: 09/26/25 12:05 LRN [id number]) PT-Bed Mobility Assessment Rolling Level of Assist Independent Supine to Sit Supine to Sit Independent Sit to Supine Sit to Supine Independent Scooting Scooting to Edge of Independent Bed Scooting Up and Down Independent in Bed PT-Transfer Assessment Sit to and From Stand Sit to and from Independent,Standby Assistance Stand Equipment Transfer Assistive Gait Belt,Standard Walker Device Orthotic/Prosthetic No Devices or Brace: Transfers Transfer Destination Chair Transfer Ability Level of Assist Independent,Standby Assistance Comments Mobility Comments Recommended pt obtain Raised Toilet seat due to his hgt of 6'2. Pt reporting he can order it through [employer]. Pt required verbal instructions for safe and proper sit <>stand using seating surface to transfer vs walker. With spouse present, pt had to be cautioned to slow down as initial stand was quick and impulsive. Pt appeared unsteady on his feet and pressure through legs of walker was uneven. Gait Assessment Gait Gait Assistance Independent,Standby Assistance Required: Distance (Feet) 100 Able to Maintain Yes Weight Bearing Status During Gait Assistive Devices Assistive Device None,Gait Belt,Standard Walker Orthotic/Prosthetic No Devices or Brace: Gait Deviations General Gait Pattern Antalgic,Flexed Trunk Factors Limiting Gait Function Factors Limiting Difficulty Following Directions,Pain,Poor Safety Gait Function Awareness Comments Gait Comments Walker was adjusted for patient height. Pt did not follow instructions for safe and proper use of standard walker as he would move the walker far ahead and place the posterior legs on the ground first. He would at times picker / packer and care the walker for a step. Once back in the room the pt walked without the walker around the bed and to a chair. Discussed with the pt and spouse who was present, the importance of providing some support to his LLE with gait to limit onset of pain post gait. PT-Balance Assessment Sitting Balance and Reactions Static Sitting Normal Balance Ability Dynamic Sitting Normal Balance Ability Standing Balance and Reactions Static Standing Good Balance Ability Dynamic Standing Good Balance Ability Device Used Standard walker Comments Other Balance Tests/ Pt appeared to have decreased balance on initial sit to Deviations/Treatment stand as the pt initially was quick and impulsive. : Recommended pt move more slowly and cautiously. Spouse present during treatment. M5 PT-IP Objective Assessments Start: 09/26/25 07:35 Freq: NEEDED Status: Discharge Protocol: Document 09/26/25 11:18 LRN (Rec: 09/26/25 12:05 [facility] [id number]) Orientation Orientation/Cognition Level of Alertness Alert Orientation Name,Month,Date,Year,Day of Week,Place,Situation Language Function No Deficits Noted Ability Safety Awareness Decreased Safety Awareness Memory Description No Deficits Noted Gross Range of Motion Upper Extremity ROM Assessment Within Functional Limits Lower Extremity ROM Assessment Left Impaired Impairments L knee AROM ~5-110 deg's Strength Upper Extremity Strength Assessment Within Functional Limits Lower Extremity Strength Assessment Left Impaired Comments Strength Comments L LE strength impairment appears due to pain. M6 PT-IP Treatment Start: 09/26/25 07:35 Freq: NEEDED Status: Discharge Protocol: Document 09/26/25 11:18 LRN (Rec: 09/26/25 12:05 N [id number]) Physical Therapy Treatment Exercises Exercises Ankle Pumps,Quad Sets,Heel Slides,Straight Leg Raises Education Education Provided Weight Bearing Status M7 PT-IP Assessment and Plan Start: 09/26/25 07:35 Freq: NEEDED Status: Discharge Protocol: Document 09/26/25 11:18 LRN (Rec: 09/26/25 12:05 LRN [id number]) PT Summary Assessment and Plan Potential Rehabilitation Excellent Potential Status of Condition Evolving at Evaluation Summary Impairments Pain,ROM,Strength,Transfers,Gait,Activity Tolerance Progress Towards Slow Progress due to Pain,Safe For Discharge Goals Assessment Summary Pt is a 59 yo male admitted for elective L TKA. Pt demonstrates impaired L knee mobility and strength due to pain. He is independent with bed mobility but showed some instability with sit>stand transfer as he moved fast and impulsively. He was able to walk with a standard walker, but did not show appropriate of safe gait mechanics and did not want to follow directions for proper use, as he claimed it made him more unsteady and too slow. The pt was able to demonstrate good knowledge of home exercises issued and it was discussed that progressing more slowly and use of elevation/cold pack for pain would progress him more quickly than overdoing activities. With SBA he would be safe to ambulate with standard walker if he can move more cautiously and slowly. It was suggested that the pt might try his crutches that he has previously used to provide him ability to walk normally and not feel so restrained. He and spouse were aware of his mobility issues and agreeable to safety precautions. The pt has no stairs in or outside his home; therefore stair ambulation was not addressed. The pt is safe to go home with use of walker and spouse to assist. Goals Bed Mobility Goal Independent Transfer Goal Standby Assistance Gait Goal Independent Gait Distance 100 ft Days to Meet Goals 3 Frequency of Treatment Frequency Of Once a Day Treatment Treatment Plan Physical Therapy Transfer Training,Gait Training,Therapeutic Exercise Treatment Plan Weight Bearing Status Weight Bearing Weight Bear as Tolerated Status Recommendations To Nursing Amount of Assist Independent,Standby Assistance Needed Discharge Recommendations PT Discharge Home with Assistance Recommendations Other Discharge Spouse to assist. Recommended to pt to move more Recommendations slowly and cautiously, and to not overdo exercise, and to follow physician's activity DC orders. Transportation Needs Private Vehicle at Discharge
--- NOTE | 2025-09-26 11:48 | PC.NURSE ---
Pt is dressed and ready for discharge home with Spouse. IV has been removed. Went over d/c instructions with Pt and Spouse-discussed d/c meds, time of last dose, reviewed stroke education, s/s of infection, encouraged fluid intake to prevent constipation or dehdyration. No driving while on narcotics. Pt to follow up as scheduled. Pt denied further questions and was taken out via w/c by [employer] to POV with Spouse and all belongings.
== END 2025-09-26 11:50 | disposition home or self-care (01) ==
LOC: OR 10:29 → AC 10:34
PROVIDERS: Anesthesiology; Physician Assistant Surgical; PCP Family Medicine; Referring Provider Orthopaedic Surgery Adult Reconstructive Orthopaedic Surgery; Visit Provider Orthopaedic Surgery Adult Reconstructive Orthopaedic Surgery
PROC: 0SRD0JZ Replacement of Left Knee Joint with Synthetic Substitute, Open Approach (ICD-10-PCS; CPT 27447; principal; 2025-09-25 13:00)
DX: M17.12 Unilateral primary osteoarthritis, left knee (principal); M21.062 Valgus deformity, not elsewhere classified, left knee; Z23 Encounter for immunization; M25.762 Osteophyte, left knee
CPT/HCPCS: 27447; 36415; 73560; 80048; 82962; 85025; 90471; 90656; 97110; 97162; C1776; C1713; J0687; J0689; J1100; J1171; J1885; J2250; J2274; J2405; J2704; J3010; J7050; J7120; Q2038